=== PATIENT | female | born 1960 | race Caucasian/White ===

== ENCOUNTER 2022-12-02 20:30 | Emergency (ER) | payer BC, SELFPAY ==
[2022-12-02 20:30] VITALS: BP 111/67; PULSE 162; RESP 16; TEMP 36.7; O2SAT 98; BMI 50.1
[2022-12-02] MEDS: dilTIAZem 5 MG/ML inj 20 MG IVP (20:45)
--- NOTE | 2022-12-02 20:51 | ED.GENADULT ---
HPI - General Adult General Chief complaint: Chest Pain Stated complaint: chest pain Time Seen by Provider: 12/02/22 20:46 History of Present Illness HPI narrative: This 62-year-old female comes in reporting when lightheadedness and shortness of breath with exertion. She has a history of atrial fibrillation with rapid ventricular response. She states that she has had medications, cardioversions and ablations done in the past. She states that symptoms started this morning. She does have chest pain but states that it is a brief sharp pain lasting just for a few seconds. She is on Eliquis, atorvastatin, Protonix, and sotalol. Related Data Home Medications Medication Instructions Recorded Confirmed apixaban 5 mg tablet (Eliquis) 5 mg PO BID 10/30/22 12/02/22 atorvastatin 20 mg tablet 20 mg PO DAILY 10/30/22 12/02/22 pantoprazole 40 mg tablet,delayed 40 mg PO DAILY 10/30/22 12/02/22 release sotalol 80 mg tablet 80 mg PO BID 10/30/22 12/02/22 spironolactone 25 mg tablet 12.5 mg PO DAILY 12/02/22 12/02/22 Allergies Allergy/AdvReac Type Severity Reaction Status Date / Time Latex, Natural Rubber Allergy Unknown Verified 12/02/22 21:15 Review of Systems Status of ROS: Reports: 10 or more systems reviewed and unremarkable except as noted in History and below Narrative: Constitutional: No fevers, no weight gain or loss. Eyes: No discharge. No vision changes. HENT: No congestion, no sore throat, no ear pain. Cardiovascular: Brief sharp chest pain episodes lasting a few seconds. Respiratory: No wheezes, no cough. Shortness of breath with exertion. Gastrointestinal: No abdominal pain, no vomiting, no diarrhea. Genitourinary: No dysuria, no hematuria. Musculoskeletal: Normal range of motion. Skin: No rashes, no pruritis. Neurological: No weakness, sensory change, speech change. Lightheadedness with exertion. Endo/Heme/Allergies: No bruising or bleeding. No polydipsia. Pysch: no suicidality, no anxiety, no insomnia. All other systems reviewed and are negative. PFSH PFS Social History Smoking Status: Never smoker How often do you have a drink containing alcohol: never AUDIT-C Alcohol total score: 0 Non-prescribed substance use: denies use Exam Narrative: Exam Narrative: Constitutional: Well-developed, well-nourished, no acute distress. HEENT: Normocephalic, atraumatic. Neck: Normal range of motion. Nontender. Supple. Heart: Regular. No murmurs. Tachycardia. Intact distal pulses. Lungs: Clear to auscultation. No chest discomfort. No wheezes, rhonchi, or rales. Abdomen: Normal bowel sounds. Nontender. No rebound tenderness. Genitalia: Deferred. Back: No midline tenderness. Normal range of motion. Extremities: Normal range of motion. No injury. Skin: Intact. No rash. Warm. No erythema or pallor. Neurologic: No altered sensation. No weakness. Alert and oriented. Psychiatric: No suicidality. No anxiety or depression. No insomnia. Nursing notes and vitals signs are reviewed. Const: Vital Signs, click to edit/add: Vital Signs - 24 hr 12/02/22 20:30 Temperature 98.0 F Pulse Rate [Right Pulse Oximeter] 162 H Respiratory Rate 16 Blood Pressure [Ri ght Upper Arm] 111/67 Pulse Oximetry 98 Oxygen Delivery Me thod Room Air Course Vital Signs Vital signs: Initial Vital Signs Temperature 98.0 F 12/02/22 20:30 Temperature Source Temporal Artery Scan 12/02/22 20:30 Pulse Rate 162 H 12/02/22 20:30 Pulse Rhythm Irregular 12/02/22 20:30 Pulse Strength 3+ Normal 12/02/22 20:30 Respiratory Rate 16 12/02/22 20:30 Blood Pressure 111/67 12/02/22 20:30 Blood Pressure Mean 81 12/02/22 20:30 Blood Pressure Position Sitting 12/02/22 20:30 Pulse Oximetry 98 12/02/22 20:30 Oxygen Delivery Method Room Air 12/02/22 20:30 Vital Signs Temperature 98.0 F 12/02/22 20:30 Pulse Rate 162 H 12/02/22 20:30 Respiratory Rate 16 12/02/22 20:30 Blood Pressure 111/67 12/02/22 20:30 Pulse Oximetry 98 12/02/22 20:30 Oxygen Delivery Method Room Air 12/02/22 20:30 Temperature 98.0 F 12/02/22 20:30 Pulse Rate 162 H 12/02/22 20:30 Respiratory Rate 16 12/02/22 20:30 Blood Pressure 111/67 12/02/22 20:30 Pulse Oximetry 98 12/02/22 20:30 Oxygen Delivery Method Room Air 12/02/22 20:30 Medical Decision Making MDM Narrative Medical decision making narrative: This patient arrives in tachycardia and likely an atrial fibrillation rhythm. Her heart rate was at 160 5 beats per minute. She was not reporting any significant chest pain but did have real brief short-lived sharp pains lasting a 2nd or 2. She did not have any nausea or vomiting. She states that she has had symptoms like this in the past but they did not persist as long. She is on Eliquis. An IV was established and labs are acquired. The patient did received 20 mg of diltiazem and this caused her to convert back to normal sinus rhythm and rate. Repeat EKG shows sinus rhythm with a rate of 84 beats per minute. Lab results returned with normal findings also. In particular her troponin is in normal range and her magnesium also is normal. The patient is okay to be discharged to resume current plans. She does have ongoing relationship with a security intelligence analyst that she can follow-up with. Lab Data Labs: Lab Results 12/02/22 Range/Units 20:55 WBC 11.35 H (4.50-11.00) K/uL RBC 5.06 (4.00-5.20) m/uL Hgb 14.5 (12.0-16.0) gm/dL Hct 46.1 (33.0-51.0) % MCV 91 (80-100) fL MCH 29 (26-34) pg MCHC 32 (32-36) gm/dL RDW Coeff of Odell 14.0 (11.5-15.5) % Plt Count 337 (140-440) K/uL Neut % (Auto) 68.8 (42.0-72.0) % Lymph % (Auto) 21.1 (20-44) % Tift % (Auto) 7.5 (0.0-11.0) % Eos % (Auto) 1.7 (0.0-7.0) % Baso % (Auto) 0.8 (0.0-3.0) % Neut # (Auto) 7.80 H (1.7-7.0) K/uL Lymph # (Auto) 2.40 (0.90-2.90) K/uL Tift # (Auto) 0.90 (0.00-0.90) K/UL Eos # (Auto) 0.20 (0.00-0.50) K/uL Baso # (Auto) 0.10 (0.00-0.30) K/uL Diff Slide Review Acceptable Review (Acceptable) Sodium 136 (135-149) mmol/L Potassium 4.6 (3.6-5.1) mmol/L Chloride 105 (96-114) mmol/L Carbon Dioxide 24 (20-32) mmol/L BUN 14 (7-30) mg/dL Creatinine 1.0 (0.5-1.5) mg/dL Estimated Creat Clear 56.72 Estimated GFR 64 ml/min Glucose 119 H (60-115) mg/dL Calcium 9.5 (8.4-10.6) mg/dL Magnesium 2.2 (1.5-2.6) mg/dL POC Troponin I 0.01 (0.01-0.04) ng/ml ECG Data Attestation: I personally reviewed and interpreted this ECG as follows: Interpretation: Tachycardia, rate 163 beats per minute. Left bundle branch block. Repeat EKG after 20 mg of diltiazem intravenously shows normal sinus rhythm with a rate of 84 beats per minute. There are no specific ST or T-wave abnormalities. Discharge Plan Discharge Clinical Impression: Atrial fibrillation with rapid ventricular response Patient Disposition: Home, Self-Care Condition: Improved Additional Instructions: Continue current plans. Follow up with cardiology clinic to review medications and plans. Return if symptoms are recurrent or worsening. Prescriptions: No Action spironolactone 25 mg tablet 12.5 mg PO DAILY atorvastatin 20 mg tablet 20 mg PO DAILY sotalol 80 mg tablet 80 mg PO BID pantoprazole 40 mg tablet,delayed release (DR/EC) 40 mg PO DAILY Eliquis 5 mg tablet 5 mg PO BID Follow Up/Referrals: Kia Zamora DO [Primary Care Provider] - Stand Alone Forms: [employer] Info Instructions
[2022-12-02 21:00] LABS: Basophils Percent Auto 0.8 % (0.0-3.0); Eosinophils Percent Auto 1.7 % (0.0-7.0); Hematocrit 46.1 % (33.0-51.0); Hemoglobin* 14.5 gm/dL (12.0-16.0); Immature Granulocytes Pct Auto 0.1 %; Lymphocytes Percent Auto 21.1 % (20-44); Mean Corpuscular HGB Conc 32 gm/dL (32-36); Mean Corpuscular Hemoglobin 29 pg (26-34); Mean Corpuscular Volume 91 fL (80-100); Monocytes Percent Auto 7.5 % (0.0-11.0); Neutrophils Percent Auto 68.8 % (42.0-72.0); Platelet Count* 337 K/uL (140-440); Red Blood Count 5.06 m/uL (4.00-5.20); White Blood Count* 11.35 K/uL (4.50-11.00)
[2022-12-02 21:04] LABS: Slide Review Reflex Yes
[2022-12-02 21:12] LABS: Troponin, Point-of-Care* 0.01 ng/ml (0.01-0.04)
[2022-12-02 21:13] LABS: Chloride* 105 mmol/L (96-114); Potassium* 4.6 mmol/L (3.6-5.1); Sodium* 136 mmol/L (135-149)
[2022-12-02 21:16] LABS: Blood Urea Nitrogen* 14 mg/dL (7-30); Calcium* 9.5 mg/dL (8.4-10.6); Carbon Dioxide* 24 mmol/L (20-32); Est. Creatinine Clearance* 56.72; Estimated Glomerular Filt Rate 64 ml/min; Glucose* 119 mg/dL (60-115)
[2022-12-02 21:17] LABS: Magnesium* 2.2 mg/dL (1.5-2.6)
[2022-12-02 21:38] LABS: Slide Review Acceptable Review (Acceptable)
== END 2022-12-02 22:07 | disposition home or self-care (01) ==
PROVIDERS: Emergency Provider Emergency Medicine Emergency Medical Services; PCP Family Medicine
DX: I48.20 Chronic atrial fibrillation, unspecified (principal)
CPT/HCPCS: 36415; 80048; 83735; 84484; 85025; 93005; 99284

== ENCOUNTER 2022-12-05 20:11 | Emergency (ER) | payer BC, SELFPAY ==
[2022-12-05] VITALS (16 sets, daily range): BP systolic 97–154; BP diastolic 48–102; PULSE 83–165; RESP 16; TEMP 36.6; O2SAT 94–98; BMI 50.1
[2022-12-05] MEDS: dilTIAZem 5 MG/ML inj 20 MG IVP (20:30)
[2022-12-05] MEDS: 0.9 % SODIUM CHLORIDE 1000 ml 1,000 ML IV (20:30)
--- NOTE | 2022-12-05 20:56 | ED_ITS ---
HPI - General Adult General Chief complaint: Arrhythmia/Palpitations Stated complaint: feels like heart is racing Time Seen by Provider: 12/05/22 20:17 Source: patient Mode of arrival: ambulatory Limitations: no limitations History of Present Illness HPI narrative: 62-year-old female coming in today complaining about increased fatigue which she attributes to any regular heartbeat. Patient states this happened to her many times in the past. She states that she knows that her heart is beating irregularly because her stamina decreases. She states that she noticed this decreased this morning. She is unable to take her pulse so can not tell how fast her pulse is going. She denies chest pain, shortness of breath, nausea, vomiting, diaphoresis or dizziness. Last time this occurred was 3 days ago. Related Data Home Medications Medication Instructions Recorded Confirmed apixaban 5 mg tablet (Eliquis) 5 mg PO BID 10/30/22 12/02/22 atorvastatin 20 mg tablet 20 mg PO DAILY 10/30/22 12/02/22 pantoprazole 40 mg tablet,delayed 40 mg PO DAILY 10/30/22 12/02/22 release sotalol 80 mg tablet 80 mg PO BID 10/30/22 12/02/22 spironolactone 25 mg tablet 12.5 mg PO DAILY 12/02/22 12/02/22 Allergies Allergy/AdvReac Type Severity Reaction Status Date / Time Latex, Natural Rubber Allergy Unknown Verified 12/02/22 21:15 Review of Systems Status of ROS: Reports: 10 or more systems reviewed and unremarkable except as noted in History and below [facility] Social History Smoking Status: Never smoker Second hand tobacco smoke exposure: No How often do you have a drink containing alcohol: never How often do you have six or more drinks on one occasion: Never AUDIT-C Alcohol total score: 0 Non-prescribed substance use: denies use Exam Narrative: Exam Narrative: Well-nourished well-developed patient in no acute distress. Alert and oriented x3. Answers questions appropriately. Mood and affect are appropriate. Thoughts are goal oriented and rational. No tangential or magical thinking noted. Patient speaks in full sentences without needing to catch her breath. HEENT: Normocephalic atraumatic. Pupils are equally round reactive to light. Extraocular muscles are intact. Conjunctivae are moist without any icterus noted. Moist mucous membranes. Posterior pharynx is normal. Neck is soft without any lymphadenopathy or thyromegaly. No masses are appreciated. Cardiovascular: Heart is regular rate and rhythm S1 and S2 are present without any murmurs. Lungs: Clear to auscultation bilaterally no wheezes rhonchi or rales are appreciated. Patient takes deep breaths without any discomfort. Abdomen: Soft and nontender nondistended with normal bowel sounds. No guarding or rebound. No masses or organomegaly appreciated. Extremities: Bilateral lower extremities are without edema. Normal DP and PT pulses. Skin: Well perfused without any obvious rashes. Const: Vital Signs, click to edit/add: Vital Signs - 24 hr 12/05/22 20:17 12/05/22 20:29 12/05/22 20:30 Temperature 97.9 F Pulse Rate 165 H Pulse Rate [Left P ulse Oximeter] 108 H Respiratory Rate 16 16 Blood Pressure 125/76 Blood Pressure [Ri ght Upper Arm] 154/102 H Pulse Oximetry 96 96 98 Oxygen Delivery Me thod Room Air 12/05/22 21:21 12/05/22 21:32 12/05/22 21:42 Temperature Pulse Rate 84 86 86 Pulse Rate [Left P ulse Oximeter] Respiratory Rate 16 16 16 Blood Pressure 105/92 H 97/64 113/48 L Blood Pressure [Ri ght Upper Arm] Pulse Oximetry 97 97 96 Oxygen Delivery Me thod 12/05/22 21:51 12/05/22 22:02 Temperature Pulse Rate 85 85 Pulse Rate [Left P ulse Oximeter] Respiratory Rate 16 16 Blood Pressure 125/66 105/53 L Blood Pressure [Ri ght Upper Arm] Pulse Oximetry 95 95 Oxygen Delivery Me thod Course Course Hospital Course: EKG was done, read by me, shows a wide QRS tachycardia with a pulse of 165. IV established and patient received normal saline and 20 mg of IV Cardizem, she promptly cardioverted back to normal sinus rhythm with a pulse in the 80s. I consulted Cardiology at [facility], Dr. Calixto, who recommended that the patient be transferred for further management given her complex history of recurrent arrhythmias. Dr. Calixto commented that today's EKG looked like a potential atypical flutter. Of note, patient is currently hemodynamically stable and will be waiting transfer. TSH and magnesium were drawn-both unremarkable today. Other labs were not drawn as patient had unremarkable lab work 3 days ago. Vital Signs Vital signs: Initial Vital Signs Temperature 97.9 F 12/05/22 20:17 Temperature Source Temporal Artery Scan 12/05/22 20:17 Pulse Rate 108 H 12/05/22 20:17 Respiratory Rate 16 12/05/22 20:17 Blood Pressure 154/102 H 12/05/22 20:17 Blood Pressure Mean 119 H 12/05/22 20:17 Pulse Oximetry 96 12/05/22 20:17 Oxygen Delivery Method Room Air 12/05/22 20:17 Vital Signs Temperature 97.9 F 12/05/22 20:17 Pulse Rate 108 H 12/05/22 20:17 Respiratory Rate 16 12/05/22 20:17 Blood Pressure 154/102 H 12/05/22 20:17 Pulse Oximetry 96 12/05/22 20:17 Oxygen Delivery Method Room Air 12/05/22 20:17 Temperature 97.9 F 12/05/22 20:17 Pulse Rate 85 12/05/22 22:02 Respiratory Rate 16 12/05/22 22:02 Blood Pressure 105/53 L 12/05/22 22:02 Pulse Oximetry 95 12/05/22 22:02 Oxygen Delivery Method Room Air 12/05/22 20:17 Medical Decision Making MDM Narrative Medical decision making narrative: 62-year-old female with recurrent arrhythmia. Patient will be transferred to [facility] per above. Medical Records Medical records reviewed: Yes I reviewed the patient's medical records Lab Data Lab results reviewed: Yes I reviewed the patient's lab results Labs: Lab Results 12/05/22 Range/Units 20:21 Magnesium 2.1 (1.5-2.6) mg/dL TSH 2.110 (0.270-4.20) uIU/mL ECG Data Attestation: I personally reviewed and interpreted this ECG as follows: Discharge Plan Discharge Clinical Impression: Atrial flutter Patient Disposition: [facility] Condition: Improved Prescriptions: No Action spironolactone 25 mg tablet 12.5 mg PO DAILY atorvastatin 20 mg tablet 20 mg PO DAILY sotalol 80 mg tablet 80 mg PO BID pantoprazole 40 mg tablet,delayed release (DR/EC) 40 mg PO DAILY Eliquis 5 mg tablet 5 mg PO BID Follow Up/Referrals: Kia Zamora DO [Primary Care Provider] - Stand Alone Forms: [employer] Info Instructions
[2022-12-05 21:52] LABS: Magnesium* 2.1 mg/dL (1.5-2.6)
[2022-12-06 01:27] VITALS: BP 124/74; PULSE 78; RESP 16; TEMP 36.6; O2SAT 95
[2022-12-06 01:30] VITALS: BP 124/74; PULSE 78; RESP 16; TEMP 36.6
== END 2022-12-06 01:31 | disposition short-term general hospital (02) ==
PROVIDERS: Emergency Provider Family Medicine; PCP Family Medicine
DX: I48.92 Unspecified atrial flutter (principal)
CPT/HCPCS: 36415; 83735; 84443; 93005; 94761; 99284; 99285; J7030

== ENCOUNTER 2022-12-06 00:36 | Outpatient (CLI) | payer BC, SELFPAY | END 2022-12-06 00:37 | disposition home or self-care (01) | LOC: AMB 07:50 | PROVIDERS: PCP Family Medicine; Visit Provider Family Medicine | DX: I49.9 Cardiac arrhythmia, unspecified (principal); R53.1 Weakness; R06.02 Shortness of breath; R53.83 Other fatigue | CPT/HCPCS: A0425; A0427; A0428 ==

== ENCOUNTER 2025-02-14 07:45 | Emergency (ER) | payer BC, SELFPAY ==
[2025-02-14] VITALS (20 sets, daily range): BP systolic 86–144; BP diastolic 30–109; PULSE 98–197; RESP 13–21; O2SAT 92–96
--- OUTSIDE RECORDS SUMMARY | 2025-02-14 07:50 | XMS_ITS | Clinical Summary ---
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 0 0 Active cholecalciferol, Vitamin D3, 5,000 unit tab tablet Take 5,000 Units by mouth once daily. Active Blood Pressure Monitor (BLOOD PRESSURE KIT)Indications: Essential hypertension Diagnosis: hypertension Arm cuff. Use as directed 1 Device 0 Active lotmuat-plgg-gdg zb-kewv-oscbcg 100 mg-150 mg- 50 mg-150 mg cap Take by mouth. 0 1 Active CPAPIndications: GERARDO (obstructive sleep apnea) CPAP machine for home use at pressure 9cmw with epr of 2; starting pressure should be between 5-7 per patient preference for comfort, full face mask x1/3month with a full face cushion x1/mo 1 Each 11 4 Active apixaban (Eliquis) 5 mg tabletIndication s:Persistent atrial fibrillation (HC) Take 1 Tablet (5 mg) by mouth two times daily. 180 Tablet 1 4 Active Additional Information Patient not taking.Reported on 11/23/2024 atorvastatin (LIPITOR) 20 mg tabletIndication s:Elevated coronary artery calcium score Take 1 Tablet (20 mg) by mouth at bedtime. 100 Tablet 3 5 Active magnesium 250 mg tab Take 1 Tablet (250 mg) by mouth once daily. 5 Active flecainide 100 mg tabletIndication s:Paroxysmal atrial fibrillation (HC) Take 1 Tablet (100 mg) by mouth every 12 hours. 180 Tablet 3 5 Active spironolactone 25 mg tabletIndication s:CHAN (dyspnea on exertion),Fluid retention Take 0.5 Tablets (12.5 mg) by mouth once daily. 45 Tablet 3 5 Active lisinopriL 10 mg tabletIndication s:Essential hypertension Take 1 Tablet (10 mg) by mouth two times daily. 180 Tablet 3 5 Active metoprolol tartrate 50 mg tabletIndication s:Paroxysmal atrial fibrillation (HC) TAKE ONE TABLET BY MOUTH TWICE A DAY 180 Tablet 3 5 Active oxyCODONE 5 mg immediate release tabletIndication s:Closed fracture of one rib of right side, initial encounter Take 1 Tablet (5 mg) by mouth every 6 hours if needed for Pain. 10 Tablet 5 Active Active Problems Problem Noted Date Diagnosed Date Morbid obesity, unspecified obesity type 025 Primary osteoarthritis of right knee 03/18/2022 Chronic systolic congestive heart failure 2021 Chest pain 01/24/2020 Pericarditis 01/18/2020 CKD (chronic kidney disease), stage III 07/24/19 20 Prediabetes 12/31/2018 Essential hypertension 12/30/2018 Dyslipidemia 12/30/2018 Dilated cardiomyopathy (HC) tachy mediated histo ry of 08/03/2018 Paroxysmal atrial fibrillation 02/01/2016 Overview (09/22/2021): CHADVASC score 1 - aspirin recommended Normal echocardiogram in 2016. Normal Lexiscan nuclear perfusion scan in 2016. SCOTT (generalized anxiety disorder) 06/22/2014 Morbid obesity with BMI of 50.0-59.9, adult 08/30 GERARDO 02/25/2012 AHI- 13, REM 31 02/29/2012 Depression, major, in remission 02/18/2012 Overview (06/22/2014): Celexa Klonopin Abilify 2mg -- trying other meds first Wellbutrin 150mg did not tolerate Effexor low dose jolts of anxiety Insomnia, unspecified 02/09/2012 Atypical chest pain 08/07/2010 Overview (08/07/2010): [facility] ER visit 0n 07/23/2010. STRESS ECHO: 1. Negative for myocardial ischemia. 2.EF 65% 3. Left Ventricular End systolic volume decreased with stress Resolved Problems Problem Noted Date Diagnosed Date Resolved Date Elevated troponin 01/24/2020 06/16/2021 Hypothyroidism 10/31/2015 10/31/2015 Prediabetes 09/18/2015 09/23/2017 Dysthymia 09/14/2012 10/02/2014 Insomnia, unspecified 09/14/20122019 Adjustment disorder with anxiety 08/18/2012 05/02/2014 Insomnia, unspecified 02/09/20122011 Adjustment disorder with mix ed anxiety and depressed mood 10/10/2009 08/18/2012 CELLULITIS of L labia majora 07/28/2006 06/16/2021 EXAMINATION, PREOPERATIVE NEC 04/07/2000 01/21/2006 Excessive or frequent menstruation 04/07/2000 06/16/2021 Lump or mass in breast 12/22/199906/16 Cough 01/21/2006 Encounters Date Type Department Care Team Description 01/30/2025 Patient Outreach [facility] Care Management - Advanced Care Team [address] [place] [address] Sravanthi Kim Complex Care Management 11/23/2024 11:00 AM CDT Ancillary Procedure [facility] [address] [place] [address] 11/23/2024 10:50 AM CDT Office Visit [facility] [address] [place] [address] Bialey Goodman PA Fall (11/11-- fall) 11/23/2024 Telephone [facility] [address] [place] [address] Bailey Goodman PA Results (Rib XR results. ) 11/23/2024 Travel 11/21/2024 Nurse Triage [facility] [address] [place] [address] Kia Zamora, Chest Pain from Last 3 Months Immunizations Immunization Administration Dates Next Due COVID-19 VACCINE SPIKEVAX (M ODERNA 50MCG/0.5ML) 12YO+ PFS 03/28/2024,04/12/2023 COVID-19 vaccine (Moderna 50mcg/0.5mL) 12YO+ BIVALENT PF, MDV 03/18/2022 COVID-19 vaccine (Pfizer-Bio NTech 30mcg/0.3mL) PF, MDV 04/26/2021,09/30/2020,09/11/2020 INFLUENZA, IIV3 PF (AGE >= 6 MO) 03/28/2024 Influenza Virus, Unspecified 03/26/2017 Influenza, IIV3 (Age >=3 years) 06/02/2012 Influenza, IIV4 03/02/2023,,05/19/2021,2019,07/19/2019,02/24/2018 Pneumococcal Conj 20-valent (Prevnar 20) 01/26/2024 Tdap 09/22/2021,06/02/2012 Zoster (Shingrix-RZV, recombinant) 07/12/2020, Family History Medical History Relation Name Comments Unknown Father Unknown Mother Genetic Other sister breast c a diag at 41 years old. Dad dm now .~No hx of CAD or HTN or colon cancer. Cancer-breast Sister Cancer-ovarian No Family History Relation Name Status Comments Father Mother Other Sister Social History Tobacco Use Types Packs/Day Years Used Date Smoking Tobacco: Never Passive Smoke Exposure: Never Smokeless Tobacco: Never Tobacco Cessation:Counseling Given: Not Answered Alcohol Use Standard Drinks/Week Comments No 0 (1 standard drink = 0.6 oz pur e alcohol) PHQ-2 Answer Date Recorded PHQ-2 TOTAL SCORE 1 01/26/2024 Social Connections Answer Date Recorded Do you often feel lonely or isolated from those around you? 0 08/23/2024 Financial Resource Strain Answer Date R ecorded Difficulty of Paying Living Expenses 1 07/17/2024 Difficulty of Paying Living Expenses 2 07/17/2024 Food Insecurity Answer Date Recorded Do you worry your food will run out before you are able to buy more? 2 08/23/2024 Transportation Needs Answer Date Record ed Does lack of transportation keep you from medica l appointments? 1 08/23/2024 Does lack of transportation keep you from work, meetings or getting things that you need? 1 08/23/2024 Housing Stability Answer Date Recorded What is your housing situation today? 1 08/23/2024 Utilities Answer Date Recorded Do you have trouble paying f or utilities (for example, heat, electricity, water, phone)? 1 08/23/2024 Comments No Sex and Gender Information Value Date Recorded Sex Assigned at Not on file Legal Sex Female 5:25 AM PRESS TENDER SMOKE SIGNAL Gender Identity Not on file Sexual Orientation Not on file Obstetrics History Para Term AB IAB SAB Ectopic Multiple Livin g Live Births 2 2 Date Outcome GA Total Labor Labor/2nd/3rd Weight Sex Type Anes PTL Valente A1 A5 Name Clin Last Filed Vital Signs Vital Sign Reading Time Taken Comments Blood Pressure 114/79 11/23/2024 10:52 AM CDT Pulse 65 11/23/2024 10:52 AM CDT Temperature 36.2 C (97.2 F) 03/30/2023 10:00 AM CDT Respiratory Rate 18 03/30/2023 10:0 0 AM CDT Oxygen Saturation 96% 11/23/2024 10: 43 AM CDT Inhaled Oxygen Concentration - - Weight 151.9 kg (334 lb 12.8 oz) 2024 10:43 AM CDT Height 170.2 cm (5' 7.01) 09/13/2024 1 0:32 AM CDT Body Mass Index 52.42 09/13/2024 10:32 AM CDT Plan of Treatment Health Maintenance Due Date Last Done Comments HIV for age 15-65 1975 Pap test for age 21-65 07/23/2008 07/23/2005 RSV vaccine for adults or (1 - Risk 60-74 years 1-dose series) 2020 Depression screening for age 12+ 01/25/2025 01/26/2024, 03/18/2022, 03/18/2022, Additional history exists Influenza Vaccine (#1) 2025 , 03/02/2023, 03/18/2022, Additional history exists Mammogram for age 45-75 08/01/2025 08/02/19 25, 05/13/2023, 05/13/2022, Additional history exists BMI (ht and wt on same day) for age 18+ 09/13/2025 09/13/2024, 01/26/2024, 09/13/2023, Additional history exists Fecal testing sDNA-FIT (Cologuard) for age 45-75 08/15/2027 08/14/2024 Lipids for age 45-75 01/25/2029 01/26/2024, 10/07/2022, 10/06/2021, Additional history exists Tetanus booster 09/23/2031 09/22/2021, 06/02/2012 Hepatitis C screening for age 18-79 Completed 12/30/2018 Zoster (shingles) series for age 50+ Completed 07/12/2020, 05/09/2020 Pneumococcal series for age 50+ Completed 01/26/2024 COVID-19 vaccine series Completed 03/28/20 24, 04/12/2023, 03/18/2022, Additional history exists Hepatitis B series for 19+ Aged Out N o longer eligible based on patient's age to complete this topic Procedures Procedure Name Priority Date/Time Associated Diagnosis Comments XR RIBS RIGHT AND PA CHEST MINIMUM 3 VIEWS Routine 11/23/2024 11:07 AM CDT Rib pain on right side SDNA-FIT EXTERNAL (COLOGUARD) Routine 08/14/2024 10:10 AM CDT Screening for colon cancer XR MAMMO ADRIANA BILAT SCREEN Routine 08/01/2024 10:58 AM PRESS TENDER SMOKE SIGNAL Visit for screening mammogram LIPID PANEL W REFLEX MEASURED LDL Routine 01/26/2024 12:17 PM CDT Dyslipidemia ANTI HCV Routine 12/30/2018 1:34 PM CDT Encounter for hepatitis C screening test for low risk patient ([place]) WEB MARKETING ASSISTANT THIN PREP PAP SCREEN Routine 07/23/2005 5:42 PM PRESS TENDER SMOKE SIGNAL Screening Malignant Neoplasms Cervix from Last 3 Months or Most Recently Relevant to Health Maintenance Results * XR RIBS RIGHT AND PA CHEST MINIMUM 3 VIEWS (11/23/2024 11:07 AM CDT) Anatomical Region Laterality Modality RIBS, RIBS R, CHEST Computed Rad iography 11/23/2024 1:43 PM CDT Impressions 11/23/2024 1:43 PM CDT Possible nondisplaced right lateral 8th rib fracture. Bibasilar atelectasis. Dictated by Manny Brown MD @ 11/23/2024 1:43:28 PM (Electronically Signed) Narrative 11/23/2024 1:43 PM CDT For Patients: As a result of the Cures Act, medical imaging exams and procedure reports are released immediately into your electronic medical record. You may view this report before your referring provider. If you have questions, please contact your health care provider. INDICATION: Right rib pain COMPARISON: 12/06/2022 TECHNIQUE: PA chest and right ribs. FINDINGS: Mild right basilar atelectasis. There is no evidence of pulmonary contusion, pneumothorax or pleural effusion. Cardiac silhouette is upper limits normal. Aortic tortuosity. Oblique detail views of the ribs demonstrate a possible nondisplaced fracture of the right lateral 8th rib. There is no evidence of pleural hematoma. Procedure Note Manny Brown MD - 11/23/2024 For Patients: As a result of the Cures Act, medical imagingexams and procedure reports are released immediately into your electronicmedical record. You may view this report before your referring provider.If you have questions, please contact your health care provider. INDICATION: Right rib pain COMPARISON: 12/06/2022 TECHNIQUE: PA chest and right ribs. FINDINGS: Mild right basilar atelectasis. There is no evidence of pulmonarycontusion, pneumothorax or pleural effusion. Cardiac silhouette is upperlimits normal. Aortic tortuosity. Oblique detail views of the ribsdemonstrate a possible nondisplaced fracture of the right lateral 8th rib.There is no evidence of pleural hematoma. IMPRESSION: Possible nondisplaced right lateral 8th rib fracture. Bibasilaratelectasis. Dictated by Manny Brown MD @ 11/23/2024 1:43:28 PM (Electronically Signed) [facility] Final Result * SDNA-FIT EXTERNAL (COLOGUARD) (08/14/2024 10:10 AM CDT) NONINV COLON CA DNA+OCC BLD SCRN STL-IMP Negative Negative 08/17/2024 12:38 PM CDT [facility] (CLIA #:[id number]) Comment: NEGATIVE TEST RESULT. A negative Cologuard result indicates a low likelihood that a colorectal cancer (CRC) or advanced adenoma (adenomatous polyps with more advanced pre-malignant features) is present. The chance that a person with a negative Cologuard test has a colorectal cancer is less than 1 in 1500 (negative predictive value >99.9%) or has an advanced adenoma is less than 5.3% (negative predictive value 94.7%). These data are based on a prospective cross-sectional study of 10,000 individuals at average risk for colorectal cancer who were screened with both Cologuard and colonoscopy. (Elizabet Saavedra et al, N Engl J Med 2014;370(14):5598-8477) The normal value (reference range) for this assay is negative. COLOGUARD RE-SCREENING RECOMMENDATION: Periodic colorectal cancer screening is an important part of preventive healthcare for asymptomatic individuals at average risk for colorectal cancer. Following a negative Cologuard result, the [place] Cancer Society and U.S. Multi-Society Task Force screening guidelines recommend a Cologuard re-screening interval of 3 years. References: [place] [employer] Society Guideline for Colorectal Cancer Screening: https://www.cancer.org/cancer/jmdoi-zyvavl-orfgji/avzmmlizw-ahvphvfof-uxggwql/ac s-rec ommendations.html.; Leonides DK, Ami CR, Toya PandyaK, Colorectal Cancer Screening: Recommendations for Physicians and Patients from the U.S. Multi-Society Task Force on Colorectal Cancer Screening , Am J Gastroenterology 2017; 112:7934-6773. TEST DESCRIPTION: Composite algorithmic analysis of stool DNA-biomarkers with hemoglobin immunoassay. Quantitative values of individual biomarkers are not reportable and are not associated with individual biomarker result reference ranges. Cologuard is intended for colorectal cancer screening of adults of either sex, 45 years or older, who are at average-risk for colorectal cancer (CRC). Cologuard has been approved for use by the U.S. FDA. The performance of Cologuard was established in a cross sectional study of average-risk adults aged 50-84. Cologuard performance in patients ages 45 to 49 years was estimated by sub-group analysis of near-age groups. Colonoscopies performed for a positive result may find as the most clinically significant lesion: colorectal cancer [4.0%], advanced adenoma (including sessile serrated polyps greater than or equal to 1cm diameter) [20%] or non- advanced adenoma [31%]; or no colorectal neoplasia [45%]. These estimates are derived from a prospective cross-sectional screening study of 10,000 individuals at average risk for colorectal cancer who were screened with both Cologuard and colonoscopy. (Elizabet Santana al, N Engl J Med 2014;370(14):3395-1786.) Cologuard may produce a false negative or false positive result (no colorectal cancer or precancerous polyp present at colonoscopy follow up). A negative Cologuard test result does not guarantee the absence of CRC or advanced adenoma (pre-cancer). The current Cologuard screening interval is every 3 years. ([place] Cancer Society and U.S. Multi-Society Task Force). Cologuard performance data in a 10,000 patient pivotal study using colonoscopy as the reference method can be accessed at the following location: www.[employer].FanMob/results. Additional description of the Cologuard test process, warnings and precautions can be found at www.Quellanrd.com. Stool specimen (specimen) (Rectum) 08/14/2024 10:10 AM CDT 08/15/2024 7:19 AM CDT Kia To Sera DO URINE Final Resul t [facility] (CLIA #:[id number]) [address] [place] [address], [place] [phone] * XR MAMMO ADRIANA BILAT SCREEN (08/01/2024 10:58 AM PRESS TENDER SMOKE SIGNAL) Anatomical Region Laterality Modality BREASTS, Breast Left, Breast Right Bilateral Mammography Impressions 08/01/2024 3:31 PM PRESS TENDER SMOKE SIGNAL There is no radiographic evidence for malignancy. Recommend annual mammograms. MAMMOGRAM ASSESSMENT: ACR 1 Negative PATIENTS: You will also receive a letter with your examination results in an easy to read format. If you have questions about your results, please contact your referring provider. Narrative 08/01/2024 3:31 PM PRESS TENDER SMOKE SIGNAL For Patients: As a result of the Century Cures Act, medical imaging exams and procedure reports are released immediately into your electronic medical record. You may view this report before your referring provider. If you have questions, please contact your health care provider. XR MAMMO ADRIANA BILAT SCREEN [[id number]] CLINICAL HISTORY: This is an asymptomatic 64 y.o. patient. INDICATION FOR EXAM: Mammogram Screening. TECHNIQUE: CC and MLO views were obtained. This study was evaluated with the assistance of Computer-Aided Detection. Breast Tomosynthesis was used in interpretation. COMPARISON FILM: Yes 05/13/23 [facility] 05/13/22 [employer] FINDINGS: There are scattered areas of fibroglandular density. There are no dominant masses, suspicious micro calcifications or areas of architectural distortion. Kia Zuleika Sera DO MAMMO Final Resul t * LIPID PANEL W REFLEX MEASURED LDL (01/26/2024 12:17 PM CDT) CHOLESTEROL,TOTAL 141 100 - 199 mg/dL 01/26/2024 7:26 PM CDT [facility] Comment: Cholesterol, Total Reference Ranges Desirable <200 mg/dL Borderline 200-239 mg/dL High >=240 mg/dL TRIGLYCERIDES 129 <150 mg/dL 01/26/2024 7:26 PM CDT [facility] HDL CHOLESTEROL 57 >40 mg/dL 7:26 PM CDT [facility] NON-HDL CHOLESTEROL 84 <145 mg/dl 01/26/2024 7:26 PM CDT [facility] CHOL/HDL RATIO 2.47 <4.50 01/26/2024 7:26 PM CDT [facility] LDL CHOLESTEROL 58 <=130 mg/dL 01/26/2024 7:26 PM CDT [facility] VLDL CHOLESTEROL 26 <=30 mg/dL 01/26/2024 7:26 PM CDT [facility] PROVIDER ORDERED STATUS RANDOM 01/26/2024 7:26 PM CDT [facility] Blood BLOOD SPECIMEN / Unknown Venipuncture / Unknown 01/26/2024 12:17 PM CDT 01/26/2024 12:18 PM CDT Kia Zamora DO CHEMISTRY Final Resul t [facility] [address] [place] [address], * ANTI HCV (12/30/2018 1:34 PM CDT) HEPATITIS C ANTIBODY Non-React anatoliy Non-React anatoliy 12/30/2018 8:22 PM CDT [facility] Comment:Antibodies to HCV no t detected; does not exclude the possibility of exposure to HCV. Blood BLOOD SPECIMEN / Unknown Venipuncture / Unknown 12/30/2018 1:34 PM CDT 12/30/2018 1:34 PM CDT Kia Zamora DO SEND OUTS Final Resul t [facility] [address] [place] [address], [place] * WEB MARKETING ASSISTANT THIN PREP PAP SCREEN (07/23/2005 5:42 PM PRESS TENDER SMOKE SIGNAL) CYTOLOGY CYTOPATHOLOGY REPORT [facility] Status: Final Report [id number] CLINICAL INFORMATION LMP : 07/01/05 Previous Pap Date : MANY YEARS Previous PAP Dx : None Previous [place]/bx date : None Previous Colposcopy/Bx: None Hormone Usage : None Menstrual Status : Irregular Periods Appearance of Cervix : NOT VISUALIZED,OBTAINE D BLINDLY [place]/Bx done today : No HPV Request : Reflex HPV test if PAP Dx ASCUS SPECIMEN SOURCE : Cervical/vaginal ThinPrep Vial, screening SPECIMEN ADEQUACY : Satisfactory for evaluation No endocervical component seen. INTERPRETATION/RE SULT: Negative for intraepithelial lesion or malignancy. Cytology 1st Screener : jeff Signed by: jeff NOTE: The Pap test is a screening technique, not a diagnostic procedure. It is used primarily to screen for squamous cancers and precursor lesions. Published studies have shown that it is subject to both false negative and false positive results. The pap test should not be used as the sole means to diagnose or exclude pre-malignant and malignant lesions. COLLECTED: 07/23/05 ACCESSIONED: 07/23/05 SIGNED: 07/31/05 [facility] Cervix SPECIMEN FROM UTERINE CERVIX / Unknown 07/23/2005 5:42 PM PRESS TENDER SMOKE SIGNAL 07/23/2005 5:39 PM PRESS TENDER SMOKE SIGNAL us Dylan Clark MD PATHOLOGY/CYTOLOGY Final Resu lt [facility] INTERNAL ZIP [id number] [address] from Last 3 Months or Most Recently Relevant to Health Maintenance Insurance [facility] Advance Directives Documents on File Type Date Recorded Patient Fitness Technician Expl anation Healthcare Directive 01/05/2021 [facility] ALEJANDRO KINGON , 01/05/2021 * Full Code (Latest Code Status on File) Date Activated Date Inactivated Comments 12/06/2022 1:54 AM 12/08/2022 8:57 PM Question Answer Comments Code Status Discussion: Reviewed Preferences * Full Code Date Activated Date Inactivated Comments 09/16/2022 12:39 PM 09/16/2022 4:06 PM Question Answer Comments Code Status Discussion: Reviewed Preferences * Full Code Date Activated Date Inactivated Comments 09/09/2022 4:03 PM 09/10/2022 12:10 PM Question Answer Comments Code Status Discussion: Other (specify in commen ts): * Full Code Date Activated Date Inactivated Comments 09/07/2022 1:41 PM 09/07/2022 5:32 PM Question Answer Comments Code Status Discussion: Other * DNR Date Activated Date Inactivated Comments 10/22/2021 10:34 AM 10/23/2021 12:45 PM Pt has valente ing will. Will rescind DNR for procedure. Question Answer Comments Code Status Discussion: Reviewed Preferences Care Teams Geothermal Powerplant Mechanic Relationship Specialty Start Date End Date Kia Zamora DO PCP - General Family Practice 01/04/12
--- OUTSIDE RECORDS SUMMARY | 2025-02-14 07:50 | XMS_ITS | Clinical Summary ---
Author Organization [facility] Address [address] [place] [address]. [place] [address] Care Team Providers Care Straw Hat Brim Raiser Operator Name Role Phone [facility], [facility] Primary Care Provide r Allergies No known active allergies Medications TRAZODONE HCL 20 mg At Bedtime. Active CITALOPRAM HYDROBROMIDE PO Take 20 mg by mouth every evening. Active oxyCODONE-acetami nophen (PERCOCET) 5-325 MG per tablet Take 1-2 tablets by mouth every 4 hours as needed for pain. 30 tablet 0 2 Active ibuprofen (ADVIL,MOTRIN) 600 MG tablet Take 1 tablet by mouth every 6 hours as needed for pain. 30 tablet 1 2 Active methocarbamol (ROBAXIN) 500 MG tablet Take 2 tablets by mouth 3 times daily as needed. 30 tablet 1 2 Active Social History Tobacco Use Types Packs/Day Years Used Date Smoking Tobacco: Never Assessed Comments No Sex and Gender Information Value Date Recorded Sex Assigned at Not on file Legal Sex Female 3:41 AM ELECTRICAL LOGGER Gender Identity Not on file Sexual Orientation Not on file Last Filed Vital Signs Vital Sign Reading Time Taken Comments Blood Pressure 109/84 08/26/2024 5:25 PM CDT Pulse 75 08/26/2024 5:25 PM CDT Temperature 36.8 C (98.2 F) 08/26/2024 2:19 PM CDT Respiratory Rate 20 08/26/2024 5:25 PM CDT Oxygen Saturation 99% 08/26/2024 5:25 PM CDT Inhaled Oxygen Concentration - - Weight 124.7 kg (275 lb) 04/17/2012 1:49 PM ELECTRICAL LOGGER Height 175.3 cm (5' 9) 04/17/2012 1:49 PM ELECTRICAL LOGGER Body Mass Index 40.61 04/17/2012 1:49 PM ELECTRICAL LOGGER Plan of Treatment Health Maintenance Due Date Last Done Comments ADVANCE CARE PLANNING 1960 ANNUAL REVIEW OF HM ORDERS 1960 CT COLONOGRAPHY 1960 DIABETES SCREENING 1960 FIT 1960 FLEX SIG 1960 YEARLY PREVENTIVE VISIT 1963 COLONOSCOPY 1970 HIV SCREENING 1975 LIPID 2000 PAP 07/23/2008 07/23/2005 PHQ-2 (once per calendar year) 2024 INFLUENZA VACCINE (#1) 2025 , 03/02/2023, 03/18/2022, Additional history exists MAMMO SCREENING 08/01/2026 08/01/2024, 08/2024, 05/13/2023, Additional history exists COLORECTAL CANCER SCREENING 08/15/2027 sDNA (Cologuard) 08/15/2027 08/14/2024, , 08/14/2024 DTAP/TDAP/TD VACCINE (3 - Td or Tdap) 09/23/2031 09/22/2021, 06/02/2012 RSV VACCINE (1 - 1-dose 75+ series) 2035 HEPATITIS C SCREENING Completed 12/30/2018 ZOSTER VACCINE Completed 07/12/2020, 05/09/2020 PNEUMOCOCCAL VACCINE 50+ YEARS Completed 01/26/2024 COVID-19 VACCINE Completed 03/28/2024, , 03/18/2022, Additional history exists HPV VACCINE (No Doses Required) Completed MENINGITIS VACCINE Aged Out No longer eligible based on patient's age to complete this topic Insurance BCBS INDIVIDUAL Care Teams Straw Hat Brim Raiser Operator Relationship Specialty Start Date End Date [facility], [address] [address] PCP - General 08/26/24
[2025-02-14] MEDS: 0.9 % SODIUM CHLORIDE 500 ML 500 ML IV (08:05)
[2025-02-14 08:10] LABS: Hematocrit* 44.6 % (33.0-51.0); Hemoglobin* 14.2 gm/dL (12.0-16.0); Immature Granulocytes Abs Auto 0.01 K/uL (0.00-0.30); Immature Granulocytes Pct Auto 0.1 %; Lymphocytes Absolute Auto 1.70 K/uL (0.90-2.90); Mean Corpuscular HGB Conc 32 gm/dL (32-36); Mean Corpuscular Hemoglobin 30 pg (26-34); Mean Corpuscular Volume 93 fL (80-100); RDW Coefficient of Variation % 14.4 % (11.5-15.5); Red Blood Count* 4.81 m/uL (4.00-5.20); White Blood Count* 8.17 K/uL (4.50-11.00)
[2025-02-14] MEDS: ADENOSINE 6 MG/2ML INJ IVP ×2 (08:10→08:12)
[2025-02-14 08:12] LABS: Slide Review Reflex No
--- NOTE | 2025-02-14 08:19 | ED.GENADULT ---
HPI - General Adult General Time Seen by Provider: 08:05 Date Seen: 02/14/25 Chief complaint: Chest Pain Stated complaint: Chest pain, short of breath Time Seen by Provider: 02/14/25 08:19 Source: patient and RN notes reviewed History of Present Illness HPI narrative: This 64-year-old female is ambulatory into the ED this morning with complaints of shortness of breath, just feeling terrible. She states she cannot walk or move at all without becoming severely short of breath. She stop taking Eliquis 5 months ago because she could not afford it, quit all of her other medicines couple months ago due to cost issue. She has an extensive history of arrhythmias. Brief review of her chart shows that she has been here both with atrial fibrillation with RVR and atrial flutter. She states she has had at least tender 12 cardioversions, she has had ablation is a. She notes no edema. She cannot feel of her heart is racing or not. No chest pain per se. She told nursing staff that her symptoms were 2-3 days but she admits she has not been feeling well for couple of weeks. She really cannot tell when her heart rate is fast or not. There are times when she feels like her heart has been pounding out of her chest. Related Data Home Medications ?Medication ?Instructions ?Recorded ?Confirmed apixaban 5 mg tablet (Eliquis) 5 mg PO BID 10/30/22 02/14/25 atorvastatin 20 mg tablet 20 mg PO DAILY 10/30/22 02/14/25 pantoprazole 40 mg tablet,delayed 40 mg PO DAILY 10/30/22 02/14/25 release sotalol 80 mg tablet 80 mg PO BID 10/30/22 02/14/25 spironolactone 25 mg tablet 12.5 mg PO DAILY 12/02/22 02/14/25 Previous Rx's ?Medication ?Instructions ?Recorded diltiazem HCl 120 mg capsule,24 120 mg PO DAILY #30 caps 02/14/25 hr,extended release furosemide 20 mg tablet 20 mg PO DAILY #3 tabs 02/14/25 warfarin 5 mg tablet 5 mg PO DAILY #30 tabs 02/14/25 Allergies Allergy/AdvReac Type Severity Reaction Status Date / Time Latex, Natural Rubber Allergy Unknown Verified 02/14/25 07:52 Review of Systems Status of ROS: Reports: 6 or more systems reviewed and unremarkable except as noted in History and below PFSH PFS Social History Smoking Status: Never smoker Second hand tobacco smoke exposure: No How often do you have a drink containing alcohol: never How often do you have six or more drinks on one occasion: Never AUDIT-C Alcohol total score: 0 Non-prescribed substance use: denies use Exam Const: Vital Signs, click to edit/add: Vital Signs - 24 hr 02/14/25 07:53 02/14/25 07:54 02/14/25 07:55 Pulse Rate 195 H 195 H Pulse Rate [Pulse Oximeter] 194 H Respiratory Rate 16 20 Blood Pressure 124/109 H Blood Pressure [Le ft Forearm] 124/109 H Pulse Oximetry 94 95 94 Oxygen Delivery Me thod Room Air 02/14/25 08:00 02/14/25 08:06 02/14/25 08:15 Pulse Rate 194 H 197 H 193 H Pulse Rate [Pulse Oximeter] Respiratory Rate 15 16 17 Blood Pressure 144/105 H Blood Pressure [Le ft Forearm] Pulse Oximetry 96 94 96 Oxygen Delivery Me thod 02/14/25 08:30 02/14/25 08:33 02/14/25 08:43 Pulse Rate 192 H 190 H Pulse Rate [Pulse Oximeter] Respiratory Rate 16 16 Blood Pressure 127/89 Blood Pressure [Le ft Forearm] Pulse Oximetry 94 92 95 Oxygen Delivery Me thod 02/14/25 08:45 02/14/25 08:51 02/14/25 08:52 Pulse Rate 193 H 98 98 Pulse Rate [Pulse Oximeter] Respiratory Rate 15 21 13 Blood Pressure 86/30 L Blood Pressure [Le ft Forearm] Pulse Oximetry 96 93 95 Oxygen Delivery Me thod 02/14/25 08:59 02/14/25 09:00 02/14/25 09:02 Pulse Rate 98 98 99 Pulse Rate [Pulse Oximeter] Respiratory Rate 17 16 15 Blood Pressure 119/69 120/69 Blood Pressure [Le ft Forearm] Pulse Oximetry 93 94 94 Oxygen Delivery Me thod 02/14/25 09:15 02/14/25 09:22 02/14/25 09:30 Pulse Rate 99 98 98 Pulse Rate [Pulse Oximeter] Respiratory Rate Blood Pressure 116/73 Blood Pressure [Le ft Forearm] Pulse Oximetry 95 95 94 Oxygen Delivery Me thod 02/14/25 09:42 02/14/25 09:45 Pulse Rate 99 Pulse Rate [Pulse Oximeter] Respiratory Rate 17 Blood Pressure 117/83 Blood Pressure [Le ft Forearm] Pulse Oximetry 93 Oxygen Delivery Me thod This 64-year-old female is alert, interactive, no apparent distress. She is sitting in the bed breathing is in room air in exam room 8. Sclera clear, face atraumatic. Neck is thick but no noted of any distension. She is able to sit up, lungs are clear, good air entry, wheeze or crackles, no tachypnea or accessory muscle use. CV is fast, cannot hear any aberrant heart sounds due to the rhythm. She is consistently in 190s and irregular rhythm on the monitor, when I have her sit up, she does go up to 204. abdomen is obese but soft. She has no lower extremity edema. We attempted initial 6 mg of adenosine but there was problems getting it in rapidly. A 2nd 6 mg adenosine dose was given rapidly. She had some initial slowing into a narrow complex with a P-wave and then went back up into a narrow complex rapid rhythm at 192 again. EKG was obtained. Will call cardiology at this point. Documenting provider has reviewed patient's vital signs: yes Course Course ED Course: Initial attempt at adenosine showed she slowed into a sinus rhythm but then went back up to a heart rate of 192. Per my a discussion with Cardiology, will have her try 20 mg IV Cardizem. Reevaluation(s) Time of Reevaluation #1: 09:05 Reevaluation #1: Patient cardioverted, nursing staff has an EKG showing normal sinus rhythm, 97 beats per minute. I have talked to the patient regarding this. We have discussed that she probably should consider a dose of Cardizem daily to help suppress rhythm. We have also talked about anticoagulation with Coumadin further. Most clinics have a Coumadin clinic or follow patient's outpatient so they do not have to see a physician each time. She does agree to start. Will send her with a prescription for Coumadin at discharge. At this time it is likely that she will discharge. She understands that the principal archaeologist's is putting a note in to electrophysiology to contact her for follow-up. Time of Reevaluation #2: 09:40 Reevaluation #2: Patient and I have discussed that she has a bit of fluid overload likely from being in this underlying tachycardia. I have recommended a few days of Lasix to see if it helps with the breathing. She is going to need close follow-up outpatient, would recommend this Wednesday. She does agree to start anticoagulation and she understands the need for the Coumadin to be monitored, would recommend the INR be checked on Wednesday, Wednesday at the latest. Will also place her on Cardizem for rate control, hopeful suppression SVT or potentially the atrial flutter with aberrancy. She is to hear from EP at [facility]. She understands that if she is having problems in the interim, I do recommend return to the ED. Consultations Consultation #1: Spoke with Dr. Ricardo from [facility], on-call Cardiology. Reviewed the EKGs that I have. He believes it might be underlying if fibrillation with aberrancy. We discussed trying Cardizem 20 mg IV. Reviewed that she had been off all of her medicines. He agreed with me that anticoagulation with Coumadin would be helpful. He is hopeful that there might be generic Eliquis within the next year. If I am not achieving rate control or cardioversion chemically with her, I will be calling him back. He will accept her in transfer if we are not making headway with her arrhythmia. Time: 08:21 Vital Signs Vital signs: Initial Vital Signs Temperature Source Temporal Artery Scan 02/14/25 07:53 Pulse Rate 194 H 02/14/25 07:53 Blood Pressure 124/109 H 02/14/25 07:53 Blood Pressure Mean 114 H 02/14/25 07:53 Blood Pressure Position Semi-Fowlers 02/14/25 07:53 Pulse Oximetry 94 02/14/25 07:53 Oxygen Delivery Method Room Air 02/14/25 07:53 Vital Signs Pulse Rate 194 H 02/14/25 07:53 Blood Pressure 124/109 H 02/14/25 07:53 Pulse Oximetry 94 02/14/25 07:53 Oxygen Delivery Method Room Air 02/14/25 07:53 Pulse Rate 99 02/14/25 09:45 Respiratory Rate 17 02/14/25 09:42 Blood Pressure 117/83 02/14/25 09:42 Pulse Oximetry 93 02/14/25 09:45 Oxygen Delivery Method Room Air 02/14/25 07:53 Medications Administered Medications: Discontinued Medications Generic Name Dose Route Start Last Admin Trade Name Effie PRN Reason Stop Dose Admin Adenosine 6 mg 02/14/25 08:21 02/14/25 08:10 Adenosine 6 Mg/2ml Inj IVP 02/14/25 08:22 6 mg ONCE ONE Administration Adenosine 6 mg 02/14/25 08:21 02/14/25 08:12 Adenosine 6 Mg/2ml Inj IVP 02/14/25 08:22 6 mg ONCE ONE Administration Diltiazem HCl 20 mg 02/14/25 08:24 02/14/25 08:43 Diltiazem 5 Mg/Ml Inj IVP 02/14/25 08:25 20 mg ONCE ONE Administration Sodium Chloride 500 mls @ 500 mls/hr 02/14/25 10:08 02/14/25 10:00 0.9 % Sodium Chloride 500 Ml IV 02/14/25 11:07 Infused .Q1H ONE Infusion Metoprolol Tartrate 5 mg 02/14/25 07:54 02/14/25 08:27 Metoprolol Tartrate 1 Mg/Ml Inj IVP 02/14/25 07:55 Not Given ONCE ONE Metoprolol Tartrate 25 mg 02/14/25 07:54 02/14/25 08:27 Metoprolol Tartrate 25 Mg Tablet PO 02/14/25 07:55 Not Given ONCE ONE Medical Decision Making Lab Data Lab results reviewed: Yes I reviewed the patient's lab results Labs: Lab Results 02/14/25 Range/Units 07:55 WBC 8.17 (4.50-11.00) K/uL RBC 4.81 (4.00-5.20) m/uL Hgb 14.2 (12.0-16.0) gm/dL Hct 44.6 (33.0-51.0) % MCV 93 (80-100) fL MCH 30 (26-34) pg MCHC 32 (32-36) gm/dL RDW Coeff of Odell 14.4 (11.5-15.5) % Plt Count 377 (140-440) K/uL Neut % (Auto) 68.0 (42.0-72.0) % Lymph % (Auto) 20.8 (20-44) % [place] % (Auto) 7.6 (0.0-11.0) % Eos % (Auto) 2.2 (0.0-7.0) % Baso % (Auto) 1.3 (0.0-3.0) % Neut # (Auto) 5.55 (1.7-7.0) K/uL Lymph # (Auto) 1.70 (0.90-2.90) K/uL [place] # (Auto) 0.60 (0.00-0.90) K/UL Eos # (Auto) 0.18 (0.00-0.50) K/uL Baso # (Auto) 0.11 (0.00-0.30) K/uL Abs Immat Gran (auto) 0.01 (0.00-0.30) K/uL Imm/Tot Granulo (auto) 0.1 % Sodium 139 (135-149) mmol/L Potassium 4.4 (3.6-5.1) mmol/L Chloride 107 (96-114) mmol/L Carbon Dioxide 26 (20-32) mmol/L Anion Gap 6 L (7-15) mEq/L BUN 17 (7-30) mg/dL Creatinine 1.0 (0.5-1.5) mg/dL Estimated GFR 63 ml/min Glucose 145 H (60-115) mg/dL Calcium 9.2 (8.4-10.6) mg/dL Magnesium 1.9 (1.5-2.6) mg/dL NT-Pro-B Natriuret Pep 4210 H (See Note) pg/mL Imaging Data Chest x-ray: Attestation: I have reviewed the pertinent imaging results. My impression: Pacer pad obscures left lung field but right lung field looks like there could be some congestive changes. Await Radiology over-read. 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 Site :?[id number] Study:?XRay-Chest 1V PORTABLE-02/14/2025 8:45:21 AM Ordering Physician:Sai Blanchard Final Report: INDICATION: Arrhythmia. Dyspnea. COMPARISON: October 30, 2022 TECHNIQUE: A single view study was obtained as a portable CXR, February 14, 2023 FINDINGS: As discussed below IMPRESSION: 1. Mildly enlarged heart is similar in appearance to the prior study. External pacer leads partially obscure the field of view. 2. Abnormal lung and vascular findings probably representing CHF/edema. An infectious/inflammatory process is felt less likely but not entirely excluded. 3. No large effusions. No pneumothorax. 4. No acute osseous abnormality. Dictated by Massimo Cabrera MD @ 02/14/2025 8:56:05 AM (Electronic Signature) ECG Data Attestation: I personally reviewed and interpreted this ECG as follows: ( tachycardia at 194 beats per minute, wide complex but regular. Certainly could be SVT but patient has complex arrhythmia history.) Prior ECG tracings: available for review Interpretation: EKG 2. Showing supraventricular tachycardia, 192 beats per minute. Has changed to a narrow complex but is at the same rate. EKG 3. Showing sinus rhythm, 97 beats per minute. No acute ischemic change. Critical Care Time Critical Care Time Critical Care Time: Yes Attestation: The patient required my highest level preparedness to intervene emergently and I personally spent this critical care time directly and personally managing the patient. This critical care time included: Obtaining a history; Examining the patient; Pulse oximetry; Ordering and reviewing of studies; Arranging urgent treatment with development of a management plan; Evaluation of patients response to treatment; Frequent reassessment discussions with other providers. This critical care time was performed to assess and manage the high probability of imminent life-threatening deterioration that could result in multiorgan failure. It was exclusive of separate billable procedures and treating other patients and teaching time. Total Critical Care Time in Minutes: 30 Discharge Plan Discharge Clinical Impression: Arrhythmia Qualifiers: Arrhythmia type: unspecified cardiac arrhythmia Qualified Code(s): I49.9 - Cardiac arrhythmia, unspecified Congestive heart failure Qualifiers: Heart failure type: unspecified Heart failure chronicity: acute Qualified Code(s): I50.9 - Heart failure, unspecified Patient Disposition: Home, Self-Care Condition: Improved Instructions: Heart Failure (ED), Heart Healthy Diet (ED) Additional Instructions: It is not clear whether this was supraventricular tachycardia (SVT) or atrial flutter with aberrancy. Electrophysiology from [facility] should be reaching out to you to get you scheduled for a follow-up. The strain of being in this tachycardic rhythm did cause a little fluid buildup in your lungs. We are going to give you 3 days of Lasix, you will need to follow-up with your primary care provider to see if this needs to be ongoing. Electrolytes need to be rechecked at that visit as Lasix can deplete potassium. You really do need to be on a blood thinner to help prevent strokes with your underlying rhythm history. We will initiate Coumadin, you will need an INR done in clinic hopefully on Wednesday, Wednesday at the latest. We will also be starting diltiazem/Cardizem to help with rhythm rate control, this can suppress SVT too. Activity Level: Activity as Tolerated Prescriptions: New furosemide 20 mg tablet 20 mg PO DAILY Qty: 3 0RF diltiazem HCl 120 mg capsule,extended release 24hr 120 mg PO DAILY Qty: 30 0RF warfarin 5 mg tablet 5 mg PO DAILY Qty: 30 0RF No Action spironolactone 25 mg tablet 12.5 mg PO DAILY atorvastatin 20 mg tablet 20 mg PO DAILY sotalol 80 mg tablet 80 mg PO BID pantoprazole 40 mg tablet,delayed release (DR/EC) 40 mg PO DAILY Eliquis 5 mg tablet 5 mg PO BID Follow Up/Referrals: Kia Zamora DO [Primary Care Provider, Family Practice] Stand Alone Forms: [employer] Info Instructions
[2025-02-14 08:23] LABS: Chloride* 107 mmol/L (96-114); Sodium* 139 mmol/L (135-149)
[2025-02-14 08:24] LABS: Potassium* 4.4 mmol/L (3.6-5.1)
[2025-02-14 08:26] LABS: Blood Urea Nitrogen* 17 mg/dL (7-30); Creatinine* 1.0 mg/dL (0.5-1.5); Estimated Glomerular Filt Rate 63 ml/min
--- NOTE | 2025-02-14 08:26 | CRLHL7_ITS ---
For Patients: As a result of the Century Cures Act, medical imaging exams and procedure reports are released immediately into your electronic medical record. You may view this report before your referring provider. If you have questions, please contact your health care provider. INDICATION: Arrhythmia. Dyspnea. COMPARISON: October 30, 2022 TECHNIQUE: A single view study was obtained as a portable CXR, February 14, 2023 FINDINGS: As discussed below IMPRESSION: 1. Mildly enlarged heart is similar in appearance to the prior study. External pacer leads partially obscure the field of view. 2. Abnormal lung and vascular findings probably representing CHF/edema. An infectious/inflammatory process is felt less likely but not entirely excluded. 3. No large effusions. No pneumothorax. 4. No acute osseous abnormality. Dictated by Massimo Cabrera MD @ 02/14/2025 8:56:05 AM (Electronically Signed)
[2025-02-14 08:27] LABS: Anion Gap 6 mEq/L (7-15); Calcium* 9.2 mg/dL (8.4-10.6); Carbon Dioxide* 26 mmol/L (20-32); Glucose* 145 mg/dL (60-115)
[2025-02-14 08:40] LABS: NT Pro B Type NatriureticPept* 4210 pg/mL (See Note)
[2025-02-14] MEDS: dilTIAZem 5 MG/ML inj 20 MG IVP (08:43)
--- OUTSIDE RECORDS SUMMARY | 2025-02-14 09:45 | XMS_ITS | Clinical Summary ---
Author Organization [facility] Address [address] [place] [address] Care Team Providers Care Tobacco Grower Name Role Phone Kia Zamora DO Primary Care Provider [phone] Source Comments You are receiving this document as you are listed as the primary care provider,follow-up provider, or the patient has been referred to you for consultation.This is in compliance with the Medicare and[facility] EHR Incentive Program,which states Providers who transition their patient to another setting of careor provider of care or refers their patient to another provider of care shouldprovide summary care record for each transition of care or referral. [facility] Allerg[facility] Active Allergy Reactions Criticality Noted Date Comments Bupropion Anxiety 04/16/2016 Medications cholecalciferol (VITAMIN D3) 1000 UNITS tablet Take 1,000 Units by mouth daily. Active aspirin 81 MG chewable tablet Take 1 Tab by mouth daily. 100 Tab 3 02/24/2016 Active Active Problems Problem Noted Date Diagnosed Date Paroxysmal atrial fibrillation 04/16/2016 Overview (04/16/2016): Normal echocardiogram in 2016. Normal Lexiscan nuclear perfusion scan in 2016. Atrial fibrillation with RVR 02/01/2016 Diverticulitis 02/01/2016 Social History Tobacco Use Types Packs/Day Years Used Date Smoking Tobacco: Never Comments No Sex and Gender Information Value Date Recorded Sex Assigned at Not on file Legal Sex Female 7:30 AM CDT Gender Identity Not on file Sexual Orientation Not on file Last Filed Vital Signs Vital Sign Reading Time Taken Comments Blood Pressure 116/78 04/16/2016 1:17 PM VENDOR MANAGEMENT SPECIALIST Pulse 58 04/16/2016 1:17 PM VENDOR MANAGEMENT SPECIALIST Temperature 37 C (98.6 F) 02/04/2016 11:10 AM CDT Respiratory Rate 15 02/04/2016 11:10 AM CDT Oxygen Saturation 94% 02/04/2016 11:10 AM CDT Inhaled Oxygen Concentration - - Weight 117.9 kg (260 lb) 04/16/2016 1:17 PM VENDOR MANAGEMENT SPECIALIST Height - - Body Mass Index - - Plan of Treatment Health Maintenance Due Date Last Done Comments Cervical Cancer Screening Due 1960 Colon Cancer Screening Plan Due 1960 Hep C Screening (Preventive Services) 1960 Mammogram 1960 HIV Screening (Preventive Services) 1976 Adult Preventive Visit 1978 Cholesterol 2005 Pneumococcal Vaccine 50+ Yrs (1 of 1 - PCV) 2010 Zoster/Shingles Vaccine (1 of 2) 2010 DTaP/Tdap/Td Vaccine (2 - Tdap) 06/02/2022 3 COVID-19 Vaccine ( - 2023-2 5 season) 2025 Influenza Vaccine (#1) 2025 RSV Vaccine (1 - 1-dose 75+ series) 2035 HepA Vaccine Aged Out No longer eligi ble based on patient's age to complete this topic HepB Vaccine Aged Out No longer eligi ble based on patient's age to complete this topic Hib Vaccine Aged Out No longer eligi ble based on patient's age to complete this topic IPV (Polio) Vaccine Aged Out No longe r eligible based on patient's age to complete this topic MCV4 Vaccine Aged Out No longer eligi ble based on patient's age to complete this topic Meningococcal B Vaccine Aged Out No l onger eligible based on patient's age to complete this topic Insurance [facility] [employer] Advance Directives * Full Code (Latest Code Status on File) Date Activated Date Inactivated Comments 02/01/2016 5:14 PM 02/06/2016 2:18 PM Care Teams Tobacco Grower Relationship Specialty [place] [id number] [place] [address] PCP - General Family Practice 02/01/16
== END 2025-02-14 10:05 | disposition home or self-care (01) ==
PROVIDERS: Family Medicine; Emergency Provider Family Medicine; PCP Family Medicine
DX: I49.9 Cardiac arrhythmia, unspecified (principal); I50.9 Heart failure, unspecified
CPT/HCPCS: 36415; 71045; 80048; 83735; 83880; 85025; 93005; 94761; 96374; 96376; 99284; 99291; J0153; J7030

== ENCOUNTER 2025-05-28 07:48 | Emergency (ER) | payer BC, SELFPAY ==
--- OUTSIDE RECORDS SUMMARY | 2025-05-28 07:50 | XMS_ITS | Clinical Summary ---
Author Organization [facility] Address [address] [place] [address] Care Team Providers Care Sales Superintendent Name Role Phone Kia Zamora Primary Care Provider [phone] Allergies Active AllergyReactionsCriticalityNoted NyzoApepftrtMalhxOnjmm03/12/2017Unlisted Allergen (Include Detail In Comments)Other - Describe In Comment Field01/22/2015 Runny nose, itchy eyes-seasonal allergies OeqdjmzvkUehwlik88/16/2014 Surges of hyperness Medications MedicationSigDispense QuantityRefillsLast FilledStart DateEnd DateStatus apixaban (ELIQUIS) 5 mg tablet Indications:prevent thromboembolism in chronic atrial fibrillationTake 1 Tablet (5 mg) by mouth two times daily. 60 Tablet 10:08 AM CST5Active amiodarone (CORDARONE) 200 mg tablet Indications:Persistent atrial fibrillation (HC)Take 1 Tablet (200 mg) by mouth once daily. 90 Tablet 9:42 AM CST5Active furosemide (LASIX) 20 mg tablet Indications:Atrial fibrillation and flutter (HC)Take 1 Tablet (20 mg) by mouth once daily in the morning. Take for 3-5 days or until back to baseline weight. 7 Tablet 04/12/2025 9:42 AM CST5Active pantoprazole (PROTONIX) 40 mg delayed-release tablet Indications:Atrial fibrillation and flutter (HC)Take 1 Tablet (40 mg) by mouth once daily. 14 Tablet 04/12/2025 9:42 AM CST5Active metoprolol succinate (TOPROL XL) 25 mg Sustained-Release tablet Indications:Persistent atrial fibrillation (HC),Heart failure, unspecified HF chronicity, unspecified heart failure type (HC)Take one-half Tablet (12.5 mg) by mouth once daily. 30 Tablet 5Active atorvastatin (LIPITOR) 20 mg tablet Indications:Elevated coronary artery calcium scoreTake 1 Tablet (20 mg) by mouth at bedtime. 100 Tablet 11:07 AM CST5Active cephalexin 500 mg capsule Indications:EpistaxisTake 1 Capsule (500 mg) by mouth two times daily. 10 Capsule 05/25/2025 4:07 PM CST5Active cephalexin 500 mg capsule Indications:EpistaxisTake 1 Capsule (500 mg) by mouth two times daily for 5 days. 10 Capsule 5107/26/2024Discontinued Active Problems ProblemNoted DateDiagnosed DateAtrial fibrillation and tushqly8804/11/2025Morbid obesity, unspecified obesity type07/17/2024Primary osteoarthritis of right knee 2Chronic systolic congestive heart fjxqijz03/25/2022Chest pain 01/24/20201250Ohuqfeyfvhcu14/20/2020CKD (chronic kidney disease), stage III 07/24/20191021Jcdkeqpffhv50/03/2019Essential rkxnfcpwyuxl90/02/2019Dyslipidemia 12/30/2018Dilated cardiomyopathy (HC) tachy mediated history of08/03/2018 Paroxysmal atrial hxnzbefoejlu68/03/2016 Overview (09/22/2021): CHADVASC score 1 - aspirin recommended Normal echocardiogram in 2016. Normal Lexiscan nuclear perfusion scan in 2016. SCOTT (generalized anxiety disorder)06/22/2014Morbid obesity with BMI of 50.0- 59.9, adult09/20/2012OSA 02/25/2012 AHI- 13, REM 311Depression, major, in pbfdlvlaz70/20/2012 Overview (06/22/2014): Celexa Klonopin Abilify 2mg -- trying other meds first Wellbutrin 150mg did not tolerate Effexor low dose jolts of anxiety Insomnia, yafuickwike67/11/2012typical chest pain08/07/2010 Overview (08/07/2010): [place] ER visit 0n 07/23/2010. STRESS ECHO: 1. Negative for myocardial ischemia. 2.EF 65% 3. Left Ventricular End systolic volume decreased with stress Resolved Problems ProblemNoted DateDiagnosed DateResolved DateElevated ctkepepr71/26/2020 06/16/20216122Ozcakvzavowwto91/02/201606/02/5516Xzffilwjlca72 Mnikgbddv33Insomnia, vstcejhyrkx95Adjustment disorder with fwlmcgl61Insomnia, kfjnvwymrph60/11/2012 02/09/2012djustment disorder with mixed anxiety and depressed mood10/10/2009 08/18/2012CELLULITIS of L labia /28/EXAMINATION, PREOPERATIVE NECExcessive or frequent gpfkvgbfrjqo35/08/2000 06/16/2021Lump or mass in uffzgw30ough01/21/2006 Encounters DateTypeDepartmentCare BjdzOcoppgfista43/29/2025Nurse Triage [facility] [address] [facility] [place] [address] Kia Zamora, Nose Problem (Nosebleed )05/25/2025 1:18 PM HOSPICE RN - 05/25/2025 4:11 PM HOSPICE RN Emergency [facility] Emergency Department [address] [place] [address] Claude Cosme MD Epistaxis (Primary Dx) Discharge Disposition: Home Self Care05/25/20250211Ymtpui83/19/2025Telephone [facility] [address] [place] [phone] Ottoniel Rose MD Post Tqdwgzhbl19/04/2025 8:15 AM CSTAnesthesia Event [facility] [address] [place] [address] Levar Sanz MD 04/11/2025 6:39 AM HOSPICE RN - 04/12/2025 1:30 PM CSTHospital Encounter [facility] [address] [place] [address] Scotty Mata MD Thompson, Kelly Ann, CRNA Taylor, Good Whitlock MD Atrial fibrillation and flutter (HC) (Primary Dx); Persistent atrial fibrillation (HC); Heart failure, unspecified HF chronicity, unspecified heart failure type (HC); Elevated coronary artery calcium score Discharge Disposition: Home Self Care04/11/20258259Jtwpqj73/11/2025Telephone [facility] [address] [facility] [address] [place] [address] Eboni Washington, RN Urvuzrnzr06/22/2025 1:00 PM CDTNurse/Clinic Staff Only [place] [id number] [place] [address] Immunization/Ctlfvfbjc61/22/2025Travelfrom Last 3 Months Immunizations ImmunizationAdministration DatesNext DueCOVID-19 VACCINE SPIKEVAX (MODERNA 50MCG/0.5ML) 12YO+ PFS03/21/2025,03/28/2024,3COVID-19 vaccine (Moderna 50mcg/0.5mL) 12YO+ BIVALENT PF, MDV12COVID-19 vaccine (Pfizer-BioNTech 30mcg/0.3mL) PF, MDV106/26/2020,09/30/2020,09/11/2020INFLUENZA, IIV3 PF (AGE >= 6 MO)02/21/2025,03/28/2024Influenza Virus, Gnadwpyxfcb73/27/2017Influenza, IIV3 (Age >=3 years)06/02/2012Influenza, TLI184,03/18/2022,05/19/2021, 03/01/2020,07/19/2019,02/24/2018Pneumococcal Conj 20-valent (Prevnar 20) 01/26/2024Tdap09/22/2021,06/02/2012Zoster (Shingrix-RZV, recombinant)07/12/2020, 05/09/2020 Family History Medical HistoryRelationNameCommentsUnknownFatherUnknownMotherGeneticOthersister breast ca diag at 41 years old.?Dad dm now .~No?hx of CAD or HTN or colon cancer.Cevfbp-zxcfiaFmlmkmLsnajf-fqjyegmUc Family HistoryRelationName StatusCommentsFatherDeceasedMotherDeceasedOtherSister Social History Tobacco UseTypesPacks/DayYears UsedDateSmoking Tobacco: NeverPassive Smoke Exposure: NeverSmokeless Tobacco: Never Tobacco Cessation:Counseling Given: Not Answered Alcohol UseStandard Drinks/WeekCommentsNo0 (1 standard drink = 0.6 oz pure alcohol)PHQ-2AnswerDate RecordedPHQ-2 TOTAL [id number] Connections AnswerDate RecordedDo you often feel lonely or isolated from those around you?0 02/21/2025lcohol UseAnswerDate RecordedHow often do you have a drink containing alcohol?verage Number of DrinksNot on file02/21/2025Frequency of Binge DrinkingNot on file02/21/2025Financial Resource StrainAnswerDate Recorded Difficulty of Paying Living Wcylywdc488/24/2025Difficulty of Paying Living ExpensesNot on file02/21/2025Food InsecurityAnswerDate RecordedDo you worry your food will run out before you are able to buy more?Transportation NeedsAnswerDate RecordedDoes lack of transportation keep you from medical appointments?Does lack of transportation keep you from work, meetings or getting things that you need?Housing StabilityAnswerDate Recorded What is your housing situation today?Interpersonal SafetyAnswerDate RecordedAre you being hit, kicked, pushed or yelled at (see row info)?No 05/25/2025Interpersonal Safety Abuse 12 - 18Not on file05/25/2025Interpersonal Safety Ambulatory VulnerabilityNot on file05/25/2025UtilitiesAnswerDate Recorded Do you have trouble paying for utilities (for example, heat, electricity, water, phone)?CommentsNoSex and Gender InformationValueDate Recorded Sex Assigned at BirthNot on fileLegal DijNakhfp59/14/2013 5:25 AM CSTGender IdentityNot on fileSexual OrientationNot on file Obstetrics History GravidaParaTermPretermABIABSABEctopicMultipleLivingLive Wmpcza86OkavPyoxvehWQ Total LaborLabor/2nd/9wfRxryuiGreLgpeKsvoYJUJftM3E3QvjqWnbeZlipukiWlcspiw Last Filed Vital Signs Vital SignReadingTime TakenCommentsBlood Uwjvyxqg337/9905/25/2025 1:16 PM HOSPICE RN Qfqsp316605/25/2025 1:16 PM VQZLyqlsnugjch00.9 ??C (98.5 ??F)05/25/2025 1:16 PM CSTRespiratory Olzz835107/26/2024 1:16 PM CSTOxygen Ajzlsbfjyn13%05/25/2025 1:16 PM CSTInhaled Oxygen Concentration--Cjbmfx485.4 kg (325 lb)05/25/2025 1:16 PM CWIHjitha429.7 cm (5' 8)05/25/2025 1:16 PM CSTBody Mass Index49.42107/26/2024 1:16 PM HOSPICE RN Plan of Treatment DateTypeDepartmentCare Team (Latest Contact Info)Plpalqikxgr65/25/2026 11:30 AM CDTOffice Visit [facility] [address] [place], [place] [address] Eboni Pederson PA [address] [place] [address] Health MaintenanceDue DateLast DoneCommentsHIV for age 15-Pap test for age 21-/RSV vaccine for adults or (1 - Risk 50-74 years 1-dose series)2010Depression screening for age 12+01/25/2025 01/26/2024, 03/18/2022, 03/18/2022, Additional history existsMammogram for age 40-7503/603/08/2024, 05/13/2023, 05/13/2022, Additional history existsBMI (ht and wt on same day) for age 18+/, 01/26/2024, 09/13/2023, Additional history existsFecal testing sDNA-FIT (Cologuard) for age 45-75 Lipids for age 45-7509001/26/2024, 10/07/2022, 10/06/2021, Additional history existsTetanus /, 06/02/2012Hepatitis C screening for age 18-45Ngonlnyru99/02/2019Zoster (shingles) series for age 50+Vmbolfsdu97/12/2021, 05/09/2020Pneumococcal series for age 50+Biixyuqoo23/28/2024Influenza XngqdzyAacnoxqnf87/24/2025, 03/28/2024, 03/02/2023, Additional history existsCOVID-19 vaccine iwpprlVrxeflzeh22/22/2025, 03/28/2024, 04/12/2023, Additional history existsHepatitis B series for 19+Aged OutNo longer eligible based on patient's age to complete this topic Procedures Procedure NamePriorityDate/TimeAssociated DiagnosisCommentsEXTRA TUBE LIGHT RBQIKOkbjp58/26/2025 1:49 PM CSTCBC W PLT NO SADOQDOS81/26/2025 1:49 PM HOSPICE RN SCAN-CARDIAC STRIP04/12/2025 8:05 AM CSTEKG 12 LEADEarly AM04/12/2025 6:51 AM HOSPICE RN MAGNESIUMEarly AM04/12/2025 4:40 AM HOSPICE RN POTASSIUMEarly AM04/12/2025 4:40 AM HOSPICE RN SCAN-CARDIAC STRIP04/12/2025 3:00 AM CSTSCAN-CARDIAC STRIP04/11/2025 8:02 PM HOSPICE RN SCAN-CARDIAC STRIP04/11/2025 2:32 PM CSTHCHG ACTIVATED CLOTTING TM CVTimed 04/11/2025 11:34 AM HOSPICE RN HCHG ACTIVATED CLOTTING TM NWPcniq93/12/2025 10:38 AM HOSPICE RN HCHG ACTIVATED CLOTTING TM SBFqsmz26/12/2025 10:18 AM HOSPICE RN HCHG ACTIVATED CLOTTING TM QKIpwsa55/12/2025 9:56 AM HOSPICE RN HCHG ACTIVATED CLOTTING TM TGUyvyx6004/11/2025 9:31 AM HOSPICE RN HCHG ACTIVATED CLOTTING TM GDSqtyx09/12/2025 9:15 AM HOSPICE RN ENDOTRACHEAL JBCBRkpuizz21/12/2025 9:01 AM HOSPICE RN ENDOTRACHEAL LSETUrpfcrc06/12/2025 9:01 AM HOSPICE RN ENDOTRACHEAL MZBCJrlfsyt54/12/2025 9:01 AM HOSPICE RN ENDOTRACHEAL YSLRFlhmswy05/12/2025 9:01 AM HOSPICE RN EP STUDY /VZEBQPUPYlutsrs18/12/2025 8:43 AM HOSPICE RN EXTRA TUBE GOLD/MPQFmjtm60/12/2025 7:12 AM CSTCBC W PLT NO THCQLbzfw52/12/2025 7:12 AM HOSPICE RN BASIC METABOLIC WDDWBMfpaj79/12/2025 7:12 AM HOSPICE RN EKG 12 QGSAFlvnq58/12/2025 7:03 AM HOSPICE RN SCAN-CARDIAC STRIP04/11/2025 12:00 AM HOSPICE RN SDNA-FIT EXTERNAL (COLOGUARD)Psxbgnv5808/14/2024 10:10 AM CDT Screening for colon cancer XR MAMMO ADRIANA BILAT HBHCYWRgpbnqi53/04/2025 10:58 AM HOSPICE RN Visit for screening mammogram LIPID PANEL W REFLEX MEASURED ONZQtkxqjq56/28/2024 12:17 PM CDT Dyslipidemia ANTI KKQTwtaxlf78/02/2019 1:34 PM CDT Encounter for hepatitis C screening test for low risk patient ([place]) CLERK ANALYST THIN PREP PAP AHJRDGCsnhdoe54/23/2006 5:42 PM HOSPICE RN Screening Malignant Neoplasms Cervix from Last 3 Months or Most Recently Relevant to Health Maintenance Results * EXTRA TUBE LIGHT GREEN (05/25/2025 1:49 PM HOSPICE RN)Specimen (Source)Anatomical Location / LateralityCollection Method / VolumeCollection TimeReceived Time BloodBLOOD SPECIMEN / UnknownExtra Tube / Unldabh7405/25/2025 1:49 PM HOSPICE RN 05/25/2025 1:56 PM HOSPICE RN Narrative Authorizing ProviderResult TypeResult StatusThomas Tomas Cosme MDLABORATORY Final ResultPerforming OrganizationAddressCity/State/ZIP CodePhone Number [facility] [id number] [place] [address] * (ABNORMAL) CBC W PLT NO DIFF (05/25/2025 1:49 PM HOSPICE RN) Only the most recent of2 resultswithin the time period is included. ComponentValueRef RangeTest MethodAnalysis TimePerformed AtPathologist Signature WHITE BLOOD COUNT7.64.5 - 11.0 thou/cu mm05/25/2025 1:59 PM [facility] LABORATORYRED BLOOD COUNT4.684.00 - 5.20 mil/cu mm05/25/2025 1:59 PM [facility]ST[facility] USDDCYXTDWKYXUTFNOZI44.612.0 - 16.0 g/dL05/25/2025 1:59 PM [facility] LABORATORYHEMATOCRIT 42.933.0 - 51.0 %05/25/2025 1:59 PM [facility] KRKMMINWYGSNJ9338 - 100 fL05/25/2025 1:59 PM [facility] WYRHKHROPOZPS19.126.0 - 34.0 pg05/25/2025 1:59 PM [facility] AJDYPRBXXZHFRU51.7(L)32.0 - 36.0 g/dL05/25/2025 1:59 PM [facility] UBGZBWBXQBQEL70.011.5 - 15.5 %05/25/2025 1:59 PM [facility] LABORATORYPLATELET MNLVT591080 - 440 thou/cu mm 05/25/2025 1:59 PM [facility] ETHQDINVXRPEC12.16.5 - 11.0 fL05/25/2025 1:59 PM [facility] LABORATORYNRBC0.0% 05/25/2025 1:59 PM [facility] LABORATORYABS NRBC0.0thou /cu mm05/25/2025 1:59 PM [facility] LABORATORYSpecimen (Source)Anatomical Location / LateralityCollection Method / VolumeCollection TimeReceived TimeBloodBLOOD SPECIMEN / UnknownNon-Lab Venipuncture / Unknown 05/25/2025 1:49 PM CST05/25/2025 1:55 PM HOSPICE RN Narrative Authorizing ProviderResult TypeResult StatusThomas Tomas Cosme MDHEMATOLOGY Final ResultPerforming OrganizationAddressCity/State/ZIP CodePhone Number [facility] [address] [place] [address], * SCAN-CARDIAC STRIP (04/12/2025 8:05 AM HOSPICE RN) Narrative Authorizing ProviderResult TypeResult StatusScannerOTHERFinal Result * EKG (04/12/2025 6:51 AM HOSPICE RN) Only the most recent of2 resultswithin the time period is included. ComponentValueRef RangeTest MethodAnalysis TimePerformed AtPathologist Signature InterpretationNormal sinus rhythm Normal ECG When compared with ECG of 11-Apr-2025 07:03, Premature atrial complexes are no longer Present BEYOND NOWVentricular Sirm29HUYNPKMFZ NOWAtrial Smri15JAGKNILBD NOWP-R Interval 176msBEYOND NOWQRS Vswkskvv51czYSHAGP OSDVF723abNOMCLP VEMLVp300zmPHNHRY NOWP Bqbp09zalgizgWGNSHJ NOWR Iawc38nroxnwjAVOXRG NOWT Agjf09yxamgfqLQSWWW NOW Specimen (Source)Anatomical Location / LateralityCollection Method / Volume Collection TimeReceived Time04/12/2025 6:51 AM CST04/12/2025 8:38 PM HOSPICE RN Narrative Authorizing ProviderResult TypeResult StatusJooriana Mata MDEKG ORDFinal ResultPerforming OrganizationAddressCity/State/ZIP CodePhone Number [facility] [place] * POTASSIUM (04/12/2025 4:40 AM HOSPICE RN)ComponentValueRef RangeTest MethodAnalysis TimePerformed AtPathologist SignaturePOTASSIUM4.73.5 - 5.1 mmol/L106/12/2024 6:01 AM CSTNOXUBEE [facility]AL [facility]PITALCENTRAL LABORATORYSpecimen (Source) Anatomical Location / LateralityCollection Method / VolumeCollection Time Received TimeBloodBLOOD SPECIMEN / UnknownVenipuncture / Uoqcqim0504/12/2025 4:40 AM CST04/12/2025 5:32 AM HOSPICE RN Narrative Authorizing ProviderResult TypeResult StatusJooriana Mata MDCHEMISTRYFinal ResultPerforming OrganizationAddressty/State/ZIP CodePhone Number [facility] [address] [place] [address], * MAGNESIUM (04/12/2025 4:40 AM HOSPICE RN)ComponentValueRef RangeTest MethodAnalysis TimePerformed AtPathologist SignatureMAGNESIUM2.11.6 - 2.4 mg/dL04/12/2025 6:01 AM [facility] LABORATORYSpecimen (Source) Anatomical Location / LateralityCollection Method / VolumeCollection Time Received TimeBloodBLOOD SPECIMEN / UnknownVenipuncture / Rgcbtzg1404/12/2025 4:40 AM CST04/12/2025 5:32 AM HOSPICE RN Narrative Authorizing ProviderResult TypeResult StatusScotty Mata [facility] – MADILLHEMISTRYFinal ResultPerforming OrganizationAddressCity/State/ZIP CodePhone Number [facility] [address] [address], [place] * SCAN-CARDIAC STRIP (04/12/2025 3:00 AM HOSPICE RN) Narrative Authorizing ProviderResult TypeResult StatusScannerOTHERFinal Result * SCAN-CARDIAC STRIP (04/11/2025 8:02 PM HOSPICE RN) Narrative Authorizing ProviderResult TypeResult StatusScannerOTHERFinal Result * SCAN-CARDIAC STRIP (04/11/2025 2:32 PM HOSPICE RN) Narrative Authorizing ProviderResult TypeResult StatusScannerOTHERFinal Result * (ABNORMAL) ACTIVATED CLOTTING TIME [id number] ACT (04/11/2025 11:34 AM HOSPICE RN) Only the most recent of6 resultswithin the time period is included. ComponentValueRef RangeTest MethodAnalysis TimePerformed AtPathologist Signature ACTIVATED CLOTTING TIME, XVTN165(H)74 - 125 sec04/12/2025 3:07 PM [facility]STTYL[facility] LABORATORYSpecimen (Source)Anatomical Location / LateralityCollection Method / VolumeCollection TimeReceived TimeBloodBLOOD SPECIMEN / Eaogjlg2804/11/2025 11:34 AM CST04/12/2025 3:07 PM HOSPICE RN Narrative Authorizing ProviderResult TypeResult StatusScotty Mata MDHEMATOLOGYFinal ResultPerforming OrganizationAddressCity/State/ZIP CodePhone Number [facility] [address] [address], [place] * HCHG TUBE PR1, HCHG INSTRUMENT DISP PR10, HCHG KIT CO2 DETECTOR PR5, HCHG STYLET PR1 (04/11/2025 9:01 AM HOSPICE RN) Narrative Mirella Hancock CRNA - 04/11/2025 9:01 AM HOSPICE RN Mirella Hancock CRNA 04/11/2025 9:01 AM Procedure: ETT Patient location during procedure: procedure room ETT Properties Mask Ventilation: easy Final Technique: video laryngoscopy Type: straight Location: oral Cuffed: yes Tube Size: 7.0 mm Stylet: yes Laryngoscope Blade: Glidescope Blade Size: 3 Cormack-Lehane Grade View: 1 Insertion Attempts: 1 Placement Verification: end tidal CO2, symmetrical chest wall movement and cuff palpation Assessment: dentition unchanged, atraumatic and pharynx clear Secured at: 22 Measured From: lips Bite Block: soft Difficulty: 0 (not difficult) Authorizing ProviderResult TypeResult StatusLaura Laurence Amelse CRNAANESTHESIA PX NOTE ORDERABLESFinal Result * EP STUDY /ABLATION (04/11/2025 8:43 AM HOSPICE RN)Anatomical RegionLateralityModality X-Ray Angiography, X-Ray AngiographySpecimen (Source)Anatomical Location / LateralityCollection Method / VolumeCollection TimeReceived Time04/11/2025 8:43 AM HOSPICE RN Narrative Transcriptions Scotty Mata MD - 04/11/2025 3:01 PM CST [facility] Electrophysiology Procedure Report Name: SUSANA WILDER Event Date: 04/11/2025 Excellian ID #: [id number] Date: 1960 Gender: Female Age: 64 LINA #: [id number] Procedure Performed By: SCOTTY MATA [facility] Referring Physician: Summary / Conclusions Summary: Susana Wilder is a 64 y.o. 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 The risk of recurrentatrial arrhythmias is elevated given diffuse LA scar/atrial myopathy. Plan: - Observe overnight (patient's preference) - Bedrest for 3 hours - Resume apixaban tonight - Continue amiodarone for the next 3 months then stop (re-trail ofsotalol would be another consideration for the future) - Lasix 20mg daily x3 days or until back to baseline weight - Protonix 40mg daily x2 weeks, then discontinue - Tentative discharge tomorrow, routine f/u with EP in 3-4 months Pre-Operative Diagnosis ? Atrial Fibrillation, Persistent ? Atrial Flutter Post-Operative Diagnosis ? Same as Pre-operative diagnosis Indications ? Same as Pre-operative diagnosis Consent & Olga Protocol Olga protocol was followed. TIME OUT conducted just prior tostarting procedure confirmed patient identity, site/side, procedure,patient position, and availability of correct equipment and implants (ifapplicable). The risks, benefits, and alternatives of the procedure were discussed withthe patient and written informed consent was obtained. Procedure Description 1. Electrophysiology study including atrial pacing and recording,coronary sinus(left atrial) pacing and recording 2. Pulsed field catheter ablation of atrial fibrillation (pulmonary vein isolation) 3. Three dimensional (3D) electroanatomic mapping system (MDT Affera)used for mapping and ablation 4. Intracardiac echocardiography (ICE) 5. Trans-septal puncture x1 6. Isoproterenol infusion for attempt at arrhythmia induction 7. Posterior wall isolation 8. Lateral mitral isthmus ablation 9. Atypical atrial flutter ablation (felt to be most consistent with byatrial flutter, ablation performed along the lateral ridge and the roofarea anterior to the left superior pulmonary vein) Catheters used: 1. ClassOwl Sphere 9 PFA catheter. 2. Intracardiac echocardiography (ICE) catheter. 3. Deflectable decapolar catheter for pacing and recording in thecoronary sinus. Description of procedures: After informed consent was reaffirmed, the patient was brought to the EPlab in the fasted state in sinus rhythm. After general anesthesia wasinduced and the patient was intubated and he was prepped and draped in theusual sterile fashion. The right groin access site was infiltrated with lidocaine for localanesthesia and then a 9, 8 and 7 Fr sheaths were placed into the rightfemoral vein using ultrasound guidance and the modified Seldingertechnique. Through these sheaths, a 10 pole deflectable diagnosticcatheter was inserted into the coronary sinus and then an intracardiacecho (ICE) was placed via the left femoral vein for assistance with thetrans-septal punctures, monitoring of the catheter tissue interface duringablation, confirmation of catheter positions at the pulmonary vein antraand monitoring for pericardial effusion.The ICE catheter was positioned inthe RA/RV and no significant pericardial effusion was observed. Systemicanticoagulation with intravenous heparin was initiated prior to the transseptal puncture with a target ACT of 350- 400 sec. The Sphere 9 catheter was inserted in to the RA. Voltage mapping of theright atrium was performed showing preserved voltage throughout. The Hislocation was marked. Transisthmus conduction time (TICT) was found to be155 ms, consistent with durable block from the prior procedure, withbidirectional block observed. Transseptal access was then performed, starting by exchanging the short 8French sheath in the right femoral vein over a wire for a PrefaceTransseptal sheath. The ICE view was fixed on the interatrial septum. ABRK needle was inserted into the Preface sheath and dragged down theseptum on GUSTAVO projection until reaching a thin and mid portion of theinteratrial septum with tenting observed on ICE. The needle was thenextended and observed to cross the interatrial septum into the LA whichwas observed on ICE. First the dilator was advanced into the LA, over the needle, and then the needle was removed and a wire was inserted into theLA/left PVs in order to advance the sheath into the LA. The wire anddilator were removed with no issues and sheath position in the LA wasconfirmed on ICE. Mean LA pressure immediately after transseptal puncturewas 21 mmHg. The Sphere 9 catheter was then inserted into the LA once the ACT was >350.Great care was taken, including appropriate aspiration and flushing, wheninserting the catheter into the preface sheath in order to avoidintroducing air into the left atrium. Once the catheter was inserted andvisualized on ice, 3D electroanatomic mapping of the left atrium wasperformed using the Sphere 9 catheter in sinus rhythm. Voltage map wasconsistent with durable isolation of the left pulmonary veins,reconnection of the right pulmonary veins along the posterior wall as well as anterior of the right superior pulmonary vein. Additionally,fractionated electrograms were observed along the posterior wall. Ablation for pulmonary vein isolation was performed around the right PVsusing PFA. Additionally, posterior wall isolation was performed with aninferior line and spot ablation along the posterior wall using PFA. Induction of atrial fibrillation/atrial tachycardia was then attempted and Isuprel was started up to 5 mcg/minute with subsequent increase in heartrate. Burst pacing was performed and atrial flutter was easily induced.Activation mapping was performed during the atrial flutter and the leftatrium, which contained the entire cycle length of the atrial flutter.Early activation, with highly fractionated electrograms, was observed onthe anterior roof area next to the left superior pulmonary vein. Earlysignals were also observed along the lateral ridge. The activation mapwas most consistent with likely a biatrial flutter (although the RA wasnot mapped as the LA contain the entire cycle length) with conductionacross Gordy's bundle versus an epicardial connection involving thelanding zone of the vein of Kingsley. There additionally appeared to besome slow activation through the lateral mitral isthmus line. Pulsedfield ablation was performed along the lateral ridge with no change intachycardia. I then performed ablation at the roof anteriorly next to theleft superior pulmonary vein which terminated the tachycardia. ICE viewsconfirmed that this area was away from the left atrial appendage. Withburst pacing, the same flutter was induced again and once again earlysignals were observed along the anterior roof near the left superiorpulmonary vein. The tachycardia again terminated with PFA applied in thisarea. As such additional lesions were performed around this area. I alsoperformed a lateral mitral isthmus line, using RF next to the mitral valveand PFA for the remainder of the line. Pacing from the sphere 9 catheteron the more anterior aspect of the line showed concentric activation ofthe coronary sinus with late activation of the distal CS, consistent withblock across the line. Isuprel up to 5 mcg/minute was again started andmultiple burst pacing attempts were made with no tachycardia induced.Notably, tachycardia was easy to induce with burst pacing in the beginningof the procedure. As such, at this point, the procedure was deemedcomplete.. The Sphere 9 was then pulled back into the sheath and pulled back to theRA. A His recording was again obtained. At this point the procedure was deemed to be complete. The Sphere 9catheter was removed from the preface sheath. Heparin was then partiallyreversed with protamine. Intracardiac echocardiography showed no evidenceof a pericardial effusion.Catheters were then withdrawn and the sheathswere left in place for removal in the recovery area once the ACT was <200 seconds. The procedure was tolerated well and there were no immediatecomplications noted. In summary: Susana Wilder presented to the EP lab where they had EP study andcatheter ablation to achieve isolation of the pulmonary veins for atrialfibrillation (ablation performed around the right pulmonary veins whichwere reconnected, left pulmonary veins showed durable isolation). The LAshowed diffuse low voltage. Posterior wall isolation was also performed aswas a lateral mitral isthmus line, with block achieved, and ablation olivia atypical, likely biatrial, flutter which repeatedly terminated withablation at the anterior roof next to the left superior pulmonary vein.CTI remained block from prior procedure and RA voltage was largelypreserved. No arrhythmias could be induced after ablation for atrial fibrillation and atrial flutter even with very aggressive programmedatrial stimulation including rapid burst pacing and pacing withextrastimuli as noted above. The patient tolerated the procedure well. Therisk of recurrent atrial arrhythmias is elevated given diffuse LAscar/atrial myopathy. Electrophysiology Study Data Basic Intervals Study State Underlying Rhythm Cycle Length VT PA AH HV QRS [place] QRSMorphology Baseline NSR 851 166 110 45 Post Ablation NSR 588 166 110 45 Arrhythmias Study State Arrhythmia Type Arrhythmia Cycle Length Induction Method Post Ablation A Flutter 520 Burst Pacing Ablation Data Atrial Fibrillation Energy Source Ablation Catheter Used Rhythm During Ablation # of AttemptsMax Muñoz Max Temp. Result Other Sphere 9 Ablation NSR 100 Success Left atrial lesion sets were placed. The left superior pulmonary vein was isolated. The right inferior pulmonary vein was isolated. The right superior pulmonary vein was isolated. Other: ligament of marshal Linear lesion sets were placed in the left atrium. Comments: Total Ablation Time (s):6:34 Atrial Flutter Energy Source Ablation Catheter Used Rhythm During Ablation # of AttemptsMax Muñoz Max Temp. Result NSR Success Cavotricuspid isthmus ablation was performed. (Pre) (Post) CS-ABL Site: 150 Comments: confirmed CTI blocked at start of procedure Catheter Use Catheter Type Catheter Description Insertion Site Intracardiac Site SheathSize Sheath Type Sheath Description Intracardiac Echo AcuNav Diagnostic Ultrasound Catheter, 90cm PhysioSonics RightFemoral Vein HRA 9 Fr. Standard Sidearm Diagnostic Bocanegra CS Catheter, Decapolar, 2-8-2, D-F Curves Right FemoralVein CS 7 Fr. Standard Sidearm Ablation Sphere 9 Right Femoral Vein Map/Abl 8 Fr. Guide Preface Procedure(s) Performed ? 3D Mapping ? Programmed Stimulation after Drug Infusion ? Ablation of Separate Mechanism of Tachycardia ? A Fib/PV Isolation Ablation ? A Fib Additional linear/focal ablation I RA/LA ? Ultrasound Site Rite Vascular Access ? Intracardiac Echo ? Ablation of Separate Mechanism of Tachycardia Auxiliary Device Intracardiac Echo Used: Yes Procedure Detail Estimated Blood Loss: < 50 ml Specimen Collected: None Level of Sedation Achieved: See Anesthesia Note Total Flouro Time: 2.2 HAND BRAILLE TRANSCRIBER Total Flouro Dose: 10 mGy Transseptal Mean LA Pressure: 18 mmHg Staff Name Role Scotty Mata Diesel Instructor Crystal Douglas RN Nurse Luz Borjas CAUSTIC ROOM OPERATOR Monitor Dino Rose EPT Scrub SolaresBilly chong CVT Scrub Medications Ordered and Administered Start Time Stop Time Medication Dose Units Route Ordered By Given By 08:47 0.25% Bupivicaine 20 mL Subcut MD Scotty Bustamante MD 08:47 1% Lidocaine Hydrochloride 20 mL Subcut MD Toro Bustamante MD 09:00 Heparin 02477 Units IV MD Crystal Bustamante RN 09:55 (New Bag) Isoproterenol (Isuprel) 5 mcg per min IV MD Crystal Pearce RN 10:10 (Existing) Isuprel 0 mcg per min IV MD Scotty Bustamante MD 10:33 (Existing) Isuprel 5 mcg per min IV MD Maira Bustamante RN 10:41 (New Bag) Isoproterenol (Isuprel) 5 mcg per min IV MD Crystal Pearce RN 10:47 (Existing) Isuprel 0 mcg per min IV MD Maira Bustamante RN 10:53 Protamine 50 Mg IV MD Crystal Bustamante RN The medications listed above were verbally ordered by me and read back tome as documented above. Refer to the hemodynamic procedure log report for additional casedetails. electronically signed on 04/11/2025 3:01:40 PM with status of Final Scotty Mata MD Diesel Instructor [facility] [address] [place] [phone] (p) [phone](f) Authorizing ProviderResult TypeResult StatusJay Deep Rose MDCV IMAGINGEdited Result - Final * EXTRA TUBE GOLD/SST (04/11/2025 7:12 AM HOSPICE RN)Specimen (Source)Anatomical Location / LateralityCollection Method / VolumeCollection TimeReceived Time BloodBLOOD SPECIMEN / UnknownExtra Tube / Skjnrfu7904/11/2025 7:12 AM HOSPICE RN 04/11/2025 7:31 AM HOSPICE RN Narrative Authorizing ProviderResult TypeResult StatusDoctor UnknownLABORATORYFinal Result Performing OrganizationAddressCity/State/ZIP CodePhone Number [facility] [address] [address], * (ABNORMAL) Basic Metabolic Panel (04/11/2025 7:12 AM HOSPICE RN)ComponentValueRef RangeTest MethodAnalysis TimePerformed AtPathologist SdtovbredYVVBKH186310 - 145 mmol/L106/11/2024 7:59 AM [facility] LAB[facility] POTASSIUM4.23.5 - 5.1 mmol/L106/11/2024 7:59 AM [facility]EN[facility]AL DGPEUWPXKKEDIMUFNZ84858 - 107 mmol/L106/11/2024 7:59 AM [facility]-CENTRAL LABORATORYCO2,AIIWR1486 - 29 mmol/L106/11/2024 7:59 AM [facility] LABORATORYANION BPW516 - 18106/11/2024 7:59 AM [facility] OHZLKFIHXZOAPAKWY470(H)70 - 99 mg/dL04/11/2025 7:59 AM [facility] LABORATORYCALCIUM 9.58.8 - 10.4 mg/dL04/11/2025 7:59 AM [facility] LABORATORYComment: Reference ranges for this test were updated on 04/04/2024 to reflect our healthy population more accurately. Reference range changes are not retroactively applied to results, but previous results using the same methodology can be interpreted in the context of the new reference range. OGU791 - 23 mg/dL04/11/2025 7:59 AM [facility] LABORATORYCREATININE1.00(H)0.50 - 0.90 mg/dL04/11/2025 7:59 AM [facility] LABORATORYBUN/CREAT AUMGH3572 - 7:59 AM HOSPICE RN [facility] JQZDWNNJZSuBDZ64(L)>90 mL/min/1.18o33204/11/2025 7:59 AM [facility] LABORATORYComment:As of 08/12/2021, eGFR is calculated by the CKD-EPI creatinine equation without race adjustment. ??eGFR can be influenced by muscle mass, exercise, and diet. ??The reported eGFR is an estimation onlyand is only applicable if the renal function is stable. Specimen (Source)Anatomical Location / LateralityCollection Method / Volume Collection TimeReceived TimeBloodBLOOD SPECIMEN / UnknownVenipuncture / Unknown 04/11/2025 7:12 AM CST04/11/2025 7:29 AM HOSPICE RN Narrative Authorizing ProviderResult TypeResult StatusJay Geovani Rose MDCHEMISTRYFinal ResultPerforming OrganizationAddressCity/State/ZIP CodePhone Number [facility] [address] * SCAN-CARDIAC STRIP (04/11/2025 12:00 AM HOSPICE RN) Narrative 04/11/2025 12:00 AM HOSPICE RN Ordered by an unspecified provider. Authorizing ProviderResult TypeResult StatusOther Clinical StaffOTHERFinal Result * SDNA-FIT EXTERNAL (COLOGUARD) (08/14/2024 10:10 AM CDT)ComponentValueRef Range Test MethodAnalysis TimePerformed AtPathologist SignatureNONINV COLON CA DNA+OCC BLD SCRN STL-IRIAyrzdyepBbtilrtn84/20/2025 12:38 PM CDTEXTwin Willows [facility] (CLIA #:[id number])Comment: NEGATIVE TEST RESULT. A negative Cologuard result indicates a low likelihood that a colorectal cancer (CRC) or advanced adenoma (adenomatous polyps with more advanced pre-malignant features) ??is present. The chance that a person with a negative Cologuard test has a colorectal cancer is less than 1in 1500 (negative predictive value >99.9%) or has an advanced adenoma is less than 5.3% (negative predictive value 94.7%). These data are based on a prospective cross-sectional study of 10,000individuals at average risk for colorectal cancer who were screened with both Cologuard and colonoscopy. (Elizabet Saavedra et al, N Engl J Med 2014;370(14):8610-7813) The normal value (reference range) for this assay is negative. COLOGUARD RE-SCREENING RECOMMENDATION: Periodic colorectal cancer screening is an important part ofpreventive healthcare for asymptomatic individuals at average risk for colorectal cancer. ??Following a negative Cologuard result, the [place] [employer] Society and U.S. Multi-Society Task Force screening guidelines recommend a Cologuard re-screening interval of 3 years. References: [place] [employer] Guideline for Colorectal Cancer Screening: https://www.cancer.or g/cancer/yiuhi-yzsuns-zjbnme/dwgggbhef-zkgrrvvbs-dlvlhzk/acs-recommendations.htm l.; Leonides PERRY, Ami ROA, Toya PandyaK, Colorectal Cancer Screening: Recommendations for Physicians and Patients from the U.S. Multi-Society Task Force on Colorectal Cancer Screening , Am J Gastroenterology 2017; 112:2164-6890. TEST DESCRIPTION: Composite algorithmic analysis of stool DNA-biomarkers with hemoglobin immunoassay. ?? Quantitative values of individual biomarkers are not reportable and are not associated with individual biomarker result reference ranges. Cologuard is intended for colorectal cancer screening ofadults of either sex, 45 years or older, [...] (Elizabet Santana al, N Engl J Med 2014;370(14):9217-6755.) Cologuard may produce a false negative or false positive result (no colorectal cancer or precancerous polyp present at colonoscopy follow up). A negative Cologuard test result does not guarantee the absence of CRC or advanced adenoma (pre-cancer). The current Cologuard screening interval is every 3 years. ([place] [employer] Society and U.S. Multi-Society Task Force). Cologuard performance data in a 10,000 patient pivotal study using colonoscopy as the reference method can be accessed at the following location: www.[employer]/results. Additional description of the Cologuard test process, warnings and precautions can be found at www.[employer].com. Specimen (Source)Anatomical Location / LateralityCollection Method / Volume Collection TimeReceived TimeStool specimen (specimen) (Rectum)08/14/2024 10:10 AM CDT08/15/2024 7:19 AM CDT Narrative Authorizing ProviderResult TypeResult StatusSherri Zuleika Zamora DOURINEFinal ResultPerforming OrganizationAddressCity/State/ZIP CodePhone Number [facility] (CLIA #:[id number]) [address] [place] [address], * XR MAMMO ADRIANA BILAT SCREEN (08/01/2024 10:58 AM HOSPICE RN)Anatomical Region LateralityModalityBREASTS, Breast Left, Breast RightBilateralMammography Specimen (Source)Anatomical Location / LateralityCollection Method / Volume Collection TimeReceived Time Impressions 08/01/2024 3:31 PM HOSPICE RN There is no radiographic evidence for malignancy. Recommend annual mammograms. MAMMOGRAM ASSESSMENT: ??ACR 1 Negative PATIENTS: You will also receive a letter with your examination results in an easy to read format. ??If you have questions about your results, please contact your referring provider. Narrative 08/01/2024 3:31 PM HOSPICE RN For Patients: As a result of the 21st Century Cures Act, medical imaging exams and procedure reports are released immediately into your electronic medical record. You may view this report before your referring provider. If you have questions, please contact your health care provider. XR MAMMO ADRIANA BILAT SCREEN [[id number]] CLINICAL HISTORY: ??This is an asymptomatic 64 y.o. patient. INDICATION FOR EXAM: Mammogram Screening. TECHNIQUE: CC and MLO views were obtained. ??This study was evaluated with the assistance of Computer-Aided Detection. Breast Tomosynthesis was used in interpretation. COMPARISON FILM: Yes 05/13/23 [facility] 05/13/22 [facility] FINDINGS: ??There are scattered areas of fibroglandular density. There are no dominant masses, suspicious micro calcifications or areas of architectural distortion. Authorizing ProviderResult TypeResult StatusSherri Zuleika Oetken DOMAMMOFinal Result * LIPID PANEL W REFLEX MEASURED LDL (01/26/2024 12:17 PM CDT)ComponentValueRef RangeTest MethodAnalysis TimePerformed AtPathologist Signature CHOLESTEROL,NLGLO236711 - 199 mg/dL01/26/2024 7:26 PM [facility] LAB[facility]ORY-CENTRAL LABORATORYComment: Cholesterol, Total Reference Ranges Desirable <200 mg/dL Borderline 200-239 mg/dL High >=240 mg/dL ZNVMFMZONEVXE404<150 mg/dL01/26/2024 7:26 PM [facility] LAB[facility]-CENTRAL LABORATORYHDL BQPANGVZFHH64>40 mg/dL01/26/2024 7:26 PM [facility]-CENTRAL LABORATORYNON-HDL BMLWAVXMLYR74<145 mg/dl01/26/2024 7:26 PM [facility] LAB[facility]-CENTRAL LABORATORYCHOL/HDL RATIO2.47<4.5008 7:26 PM [facility] LAB[facility]-CENTRAL LABORATORYLDL ATDESFJTXBW12<=130 mg/dL01/26/2024 7:26 PM [facility] LABOR[facility]-CENTRAL LABORATORYVLDL JUYGLGSTDXN34<=30 mg/dL01/26/2024 7:26 PM [facility] LABOR[facility]-CENTRAL LABORATORYPROVIDER ORDERED OODVLSPQXIXQ23/28/2024 7:26 PM [facility] LAB[facility]-CENTRAL LABORATORYSpecimen (Source)Anatomical Location / Laterality Collection Method / VolumeCollection TimeReceived TimeBloodBLOOD SPECIMEN / UnknownVenipuncture / Jaevnwn0501/26/2024 12:17 PM CDT01/26/2024 12:18 PM CDT Narrative Authorizing ProviderResult TypeResult StatusKia Zamora DOCHEMISTRYFinal ResultPerforming OrganizationAddRoxborough Memorial Hospitalty/State/ZIP CodePhone Number [facility] LAB[facility] [address] [place] [address], * ANTI HCV (12/30/2018 1:34 PM CDT)ComponentValueRef RangeTest MethodAnalysis TimePerformed AtPathologist SignatureHEPATITIS C ANTIBODYNon-Reactive Non-Pwrphjyl36/02/2019 8:22 PM CDSCOTT [facility]ITALCENTRAL [facility] Comment:Antibodies to HCV not detected; does not exclude the possibility of exposure to HCV.Specimen (Source)Anatomical Location / LateralityCollection Method / VolumeCollection TimeReceived TimeBloodBLOOD SPECIMEN / Unknown Venipuncture / Atkovyl9112/30/2018 1:34 PM CDT12/30/2018 1:34 PM CDT Narrative Authorizing ProviderResult TypeResult StatusKia Zamora DOSEND OUTSFinal ResultPerforming OrganizationAddressty/[facility]/ZIP CodePhone Number [facility]AL LAB[facility]ATORY [address] [place] [address], * CLERK ANALYST THIN PREP PAP SCREEN (07/23/2005 5:42 PM HOSPICE RN)ComponentValueRef RangeTest MethodAnalysis TimePerformed AtPathologist SignatureCYTOLOGY??CYTOPATHOLOGY REPORT ??[facility] ?? Status: Final Report ? [id number] ?? CLINICAL INFORMATION ?LMP ? : 07/01/05 ?Previous Pap Date ? : MANY YEARS ?Previous PAP Dx ? : None ?Previous [place]/bx date : None ?Previous Colposcopy/Bx: None ?Hormone Usage ? : None ?Menstrual Status ?: Irregular Periods ?Appearance of Cervix ??: NOT VISUALIZED,OBTAINED BLINDLY ?[place]/Bx done today ?: No ?HPV Request ? : Reflex HPV test if PAP Dx ASCUS ?? SPECIMEN SOURCE ?: Cervical/vaginal ThinPrep Vial, screening ?? SPECIMEN ADEQUACY ?: Satisfactory for evaluation No endocervical ?component seen. ? INTERPRETATION/RESULT: ?Negative for intraepithelial lesion or malignancy. ? Cytology 1st Screener : ??taj ?? Signed by: ? taj ?? NOTE: The Pap test is a screening technique, not a diagnostic ?? procedure. It is used primarily to screen for squamous cancers and ?? precursor lesions. Published studies have shown that it is subject to ?? both false negative and false positive results. The pap test should ?? not be used as the sole means to diagnose or exclude pre-malignant and ?? malignant lesions. ?? COLLECTED: 07/23/05 ?? ACCESSIONED: 07/23/05 ?? SIGNED: 07/31/05[facility] HEALTHpecimen (Source)Anatomical Location / LateralityCollection Method / VolumeCollection TimeReceived TimeCervixSPECIMEN FROM UTERINE CERVIX / Ald[place]ohp0007/23/2005 5:42 PM CST07/23/2005 5:39 PM HOSPICE RN Narrative Authorizing ProviderResult TypeResult StatusHarold L Clark MDPATHOLOGY/CYTOLOGY Final ResultPerforming OrganizationAddressCity/State/ZIP CodePhone Number [facility] INTERNAL ZIP [address] [address] from Last 3 Months or Most Recently Relevant to Health Maintenance Insurance Advance Directives TypeDate RecordedPatient RepresentativeExplanationHealthcare Directive01/05/2021 [facility] , 01/05/2021 * Full Code (Latest Code Status on File) Date ActivatedDate GrfpnlgzqqjLdkdziux46/12/2025 10:58 AM04/12/2025 3:49 PM QuestionAnswerCommentsCode Status Discussion:* Other * Full Code Date ActivatedDate InactivatedComments02/15/2025 10:36 AM02/17/2025 5:16 PM QuestionAnswerCommentsCode Status Discussion:* Reviewed Preferences * Full Code Date ActivatedDate InactivatedComments12/06/2022 1:54 AM12/08/2022 8:57 PMQuestion AnswerCommentsCode Status Discussion:* Reviewed Preferences * Full Code Date ActivatedDate InactivatedComments09/16/2022 12:39 PM09/16/2022 4:06 PM QuestionAnswerCommentsCode Status Discussion:* Reviewed Preferences * Full Code Date ActivatedDate InactivatedComments09/09/2022 4:03 PM09/10/2022 12:10 PM QuestionAnswerCommentsCode Status Discussion:* Other (specify in comments): Care Teams Team MemberRelationshipSpecialtyStart [place] [address] [place] [address] PCP - GeneralFamoly Practice02/15/25
--- OUTSIDE RECORDS SUMMARY | 2025-05-28 07:50 | XMS_ITS | Clinical Summary ---
Author Organization [facility] Address [address] [place] [address]. [place] [address] Care Team Providers Care Nurse Anesthesia Program Director Name Role Phone [employer], [facility] Primary Care Provide r Allergies No known active allergies Medications MedicationSigDispense QuantityRefillsLast FilledStart DateEnd DateStatus TRAZODONE HCL 20 mg At Bedtime.Active CITALOPRAM HYDROBROMIDE PO Take 20 mg by mouth every evening.Active oxyCODONE-acetaminophen (PERCOCET) 5-325 MG per tablet Take 1-2 tablets by mouth every 4 hours as needed for pain. 30 tablet ctive ibuprofen (ADVIL,MOTRIN) 600 MG tablet Take 1 tablet by mouth every 6 hours as needed for pain. 30 tablet ctive methocarbamol (ROBAXIN) 500 MG tablet Take 2 tablets by mouth 3 times daily as needed. 30 tablet ctive Social History Tobacco UseTypesPacks/DayYears UsedDateSmoking Tobacco: Never Assessed CommentsNoSex and Gender InformationValueDate RecordedSex Assigned at BirthNot on fileLegal BiySejrkb15/04/2012 3:41 AM CSTGender IdentityNot on fileSexual OrientationNot on file Last Filed Vital Signs Vital SignReadingTime TakenCommentsBlood Vgrhuhkt831/8408/26/2024 5:25 PM CDT Txubq541408/26/2024 5:25 PM XUIXncqkkavdyb58.8 ??C (98.2 ??F)08/26/2024 2:19 PM CDTRespiratory Gjdw157208/26/2024 5:25 PM CDTOxygen Lhedskoygz47%08/26/2024 5:25 PM CDTInhaled Oxygen Concentration--Rkcksr612.7 kg (275 lb)04/17/2012 1:49 PM VOJJkuqcg823.3 cm (5' 9)04/17/2012 1:49 PM CSTBody Mass Index40.6104/17/2012 1:49 PM PHYSICIAN REPRESENTATIVE Plan of Treatment Health MaintenanceDue DateLast DoneCommentsADVANCE CARE TIHNSFJQ23/26/1961ANNUAL REVIEW OF HM MVKBTA62 1960T TVKMIOZXRKPO03/26/1961IABETES SCREENING 1960FIT1960FLEX SIG1960YEARLY PREVENTIVE VISIT1963 WQJVXGHIISO84/26/1971HIV PYCGXPQIR69/26/3513KPTCR76/26/5359BXC6207/23/2008 07/23/2005PHQ-2 (once per calendar year)2024OVID-19 VACCINE ( season), 04/12/2023, 03/18/2022, Additional history exists INFLUENZA VACCINE (#1)/, 03/02/2023, 03/18/2022, Additional history existsMAMMO LUCPYKWZW64, 08/01/2024, 05/13/2023, Additional history existsCOLORECTAL CANCER JHDSHZOWW71/17/2028sDNA (Cologuard) , 08/14/2024, 08/14/2024DTAP/TDAP/TD VACCINE (3 - Td or Tdap)/, 06/02/2012RSV VACCINE (1 - 1-dose 75+ series) 2035HEPATITIS C JKCVOMLKNLqpnqlxzk20/02/2019ZOSTER VACCINECompleted 07/12/2020, 05/09/2020PNEUMOCOCCAL VACCINE 50+ HJDCPPkyeiitjn87/28/2024HPV VACCINE (No Doses Required)CompletedMENINGITIS VACCINEAged OutNo longer eligible based on patient's age to complete this topic Insurance Care Teams Team MemberRelationshipSpecialtyStart DateEnd [address] [phone] PCP - General08/26/24
--- OUTSIDE RECORDS SUMMARY | 2025-05-28 07:50 | XMS_ITS | Clinical Summary ---
Author Organization [facility] Address [address] [place] [address] Care Team Providers Care Extractions Technologist Name Role Phone Kia Zamora DO Primary Care Provider Bruna cuenca Source Comments You are receiving this document as you are listed as the primary care provider,follow-up provider, or the patient has been referred to you for consultation.This is in compliance with the Medicare andMedicaid EHR Incentive Program,which states Providers who transition their patient to another setting of careor provider of care or refers their patient to another provider of care shouldprovide summary care record for each transition of care or referral. [facility] Allergies Active AllergyReactionsCriticalityNoted McruLhsovofcMiqpjqnmzGkleqja11/17/2016 Medications MedicationSigDispense QuantityRefillsLast FilledStart DateEnd DateStatus cholecalciferol (VITAMIN D3) 1000 UNITS tablet Take 1,000 Units by mouth daily.Active aspirin 81 MG chewable tablet Take 1 Tab by mouth daily. 100 Tab Active Active Problems ProblemNoted DateDiagnosed DateParoxysmal atrial mxhdiaitxxus13/17/2016 Overview (04/16/2016): Normal echocardiogram in 2016. Normal Lexiscan nuclear perfusion scan in 2016. Atrial fibrillation with RVR02/01/20166620Ekazxdzuimzxqs06/03/2016 Social History Tobacco UseTypesPacks/DayYears UsedDateSmoking Tobacco: NeverCommentsNo Sex and Gender InformationValueDate RecordedSex Assigned at BirthNot on file Legal KkpCvhdar48/10/2012 7:30 AM CDTGender IdentityNot on fileSexual OrientationNot on file Last Filed Vital Signs Vital SignReadingTime TakenCommentsBlood Lcdjcvdp132/7811 1:17 PM ZIG ZAG STITCHER Wycaa7886 1:17 PM MFJVglcgfddevg67 ??C (98.6 ??F)02/04/2016 11:10 AM CDT Respiratory Clol4953 11:10 AM CDTOxygen Asjgtnyyos87%02/04/2016 11:10 AM CDTInhaled Oxygen Concentration--Bjuxgf093.9 kg (260 lb)04/16/2016 1:17 PM ZIG ZAG STITCHER Height--Body Mass Index-- Plan of Treatment Health MaintenanceDue DateLast DoneCommentsCervical Cancer Screening Due 1960olon Cancer Screening Plan Due1960Hep C Screening (Preventive Services)1960 6078Ybatbkbkz64/27/1961HIV Screening (Preventive Services) 1976Adult Preventive Visit07/26/19786520Epbzwqeygwv45/26/2006Pneumococcal Vaccine 50+ Yrs (1 of 1 - PCV)2010Zoster/Shingles Vaccine (1 of 2) 2010DTaP/Tdap/Td Vaccine (2 - Tdap)COVID-19 Vaccine (1 - 2024- season)2025Influenza Vaccine (#1)2025RSV Vaccine (1 - 1- dose 75+ series)2035HepA VaccineAged OutNo longer eligible based on patient's age to complete this topicHepB VaccineAged OutNo longer eligible based on patient's age to complete this topicHib VaccineAged OutNo longer eligible based on patient's age to complete this topicIPV (Polio) VaccineAged OutNo longer eligible based on patient's age to complete this topicMCV4 VaccineAged OutNo longer eligible based on patient's age to complete this topicMeningococcal B VaccineAged OutNo longer eligible based on patient's age to complete this topic Insurance Advance Directives * Full Code (Latest Code Status on File) Date ActivatedDate InactivatedComments02/01/2016 5:14 PM02/06/2016 2:18 PM Care Teams Team MemberRelationshipSpecialtyStart DateEnd Date Kia Zamora DO PCP - GeneralFamily Practice02/01/16
[2025-05-28 07:51] VITALS: BP 140/79; PULSE 76; RESP 18; TEMP 36.6; O2SAT 93; BMI 49.9
--- NOTE | 2025-05-28 08:18 | ED.GENADULT ---
HPI - General Adult General Date Seen: 05/28/25 Chief complaint: Epistaxis/Nosebleed Stated complaint: Nosebleed Time Seen by Provider: 05/28/25 08:09 History of Present Illness HPI narrative: Patient is a 64-year-old woman who developed a nosebleed a couple of days ago, she was in [place] at the times she was taking care of at [place], had a presumably rhino rocket placed. This morning she when she woke up she said it was bleeding again, she said she was ?vomiting clots. It has now stopped. That was about an hour and half ago. She said it bled for about 20 minutes, she called the number on her paperwork and they told her to come in and be seen. She is on Eliquis secondary to atrial fibrillation, she held yesterday, was told to hold it today and have packing removed tomorrow. That is not arranged yet. She also notes that she has discomfort from the packing and has had some nausea. Related Data Home Medications ?Medication ?Instructions ?Recorded ?Confirmed apixaban 5 mg tablet (Eliquis) 5 mg PO BID 10/30/22 05/28/25 atorvastatin 20 mg tablet 20 mg PO DAILY 10/30/22 05/28/25 pantoprazole 40 mg tablet,delayed 40 mg PO DAILY 10/30/22 05/28/25 release sotalol 80 mg tablet 80 mg PO BID 10/30/22 05/28/25 spironolactone 25 mg tablet 12.5 mg PO DAILY 12/02/22 05/28/25 amiodarone 200 mg tablet 200 mg PO DAILY 05/28/25 05/28/25 metoprolol succinate 25 mg 12.5 mg PO DAILY 05/28/25 05/28/25 tablet,extended release 24 hr Previous Rx's ?Medication ?Instructions ?Recorded diltiazem HCl 120 mg capsule,24 120 mg PO DAILY #30 caps 02/14/25 hr,extended release furosemide 20 mg tablet 20 mg PO DAILY #3 tabs 02/14/25 Allergies Allergy/AdvReac Type Severity Reaction Status Date / Time Latex, Natural Rubber Allergy Unknown Verified 05/28/25 07:59 PFSH PFS Social History Smoking Status: Never smoker Second hand tobacco smoke exposure: No How often do you have a drink containing alcohol: never How often do you have six or more drinks on one occasion: Never AUDIT-C Alcohol total score: 0 Non-prescribed substance use: denies use Exam Narrative: Exam Narrative: Vital signs reviewed In general, alert, well-appearing woman. ENT: At this time no active bleeding, balloon is in place in the right nares, throat is normal. Const: Vital Signs, click to edit/add: Vital Signs - 24 hr 05/28/25 07:51 Temperature 97.9 F Pulse Rate [Right Pulse Oximeter] 76 Respiratory Rate 18 Blood Pressure [Ri ght Forearm] 140/79 H Pulse Oximetry 93 Oxygen Delivery Me thod Room Air Course Course ED Course: Discussed with her that I would not recommend disrupting the balloon at this point. I would recommend that she leave it in for a total of 5 days, discussed that she could follow up there are ENT clinic if needed otherwise through [facility]. Would recommend that she hold her Eliquis today and tomorrow given that she still having some trickling this morning. Return for heavy bleeding that does not subside within 30 minutes. I gave her Tylenol and Zofran here for pain and nausea. Vital Signs Vital signs: Initial Vital Signs Temperature 97.9 F 05/28/25 07:51 Temperature Source Temporal Artery Scan 05/28/25 07:51 Pulse Rate 76 05/28/25 07:51 Respiratory Rate 18 05/28/25 07:51 Blood Pressure 140/79 H 05/28/25 07:51 Blood Pressure Mean 99 05/28/25 07:51 Blood Pressure Position Sitting 05/28/25 07:51 Pulse Oximetry 93 05/28/25 07:51 Oxygen Delivery Method Room Air 05/28/25 07:51 Vital Signs Temperature 97.9 F 05/28/25 07:51 Pulse Rate 76 05/28/25 07:51 Respiratory Rate 18 05/28/25 07:51 Blood Pressure 140/79 H 05/28/25 07:51 Pulse Oximetry 93 05/28/25 07:51 Oxygen Delivery Method Room Air 05/28/25 07:51 Temperature 97.9 F 05/28/25 07:51 Pulse Rate 76 05/28/25 07:51 Respiratory Rate 18 05/28/25 07:51 Blood Pressure 140/79 H 05/28/25 07:51 Pulse Oximetry 93 05/28/25 07:51 Oxygen Delivery Method Room Air 05/28/25 07:51 Discharge Plan Discharge Clinical Impression: Epistaxis Patient Disposition: Home, Self-Care Condition: Stable Instructions: Nosebleed (ED) Additional Instructions: As discussed, I would recommend holding your Eliquis today and tomorrow. Balloon can be removed ideally on Wednesday. You can follow-up through the [facility], or you can call our ENT, Dr. Mchugh in, at [phone] and he should be able to fit you in to remove your packing. If you have heavy bleeding that lasts longer than 30 minutes, return to the ER at any time. Prescriptions: No Action spironolactone 25 mg tablet 12.5 mg PO DAILY furosemide 20 mg tablet 20 mg PO DAILY Qty: 3 0RF diltiazem HCl 120 mg capsule,extended release 24hr 120 mg PO DAILY Qty: 30 0RF amiodarone 200 mg tablet 200 mg PO DAILY metoprolol succinate 25 mg tablet extended release 24 hr 12.5 mg PO DAILY atorvastatin 20 mg tablet 20 mg PO DAILY sotalol 80 mg tablet 80 mg PO BID pantoprazole 40 mg tablet,delayed release (DR/EC) 40 mg PO DAILY Eliquis 5 mg tablet 5 mg PO BID Patient Comments: hold for past 2 days due to nosebleed Follow Up/Referrals: Kia Zamora DO [Primary Care Provider, Family Practice] Stand Alone Forms: [employer] Info Instructions
[2025-05-28] MEDS: ONDANSETRON ODT 4 MG TAB PO (08:31)
[2025-05-28] MEDS: ACETAMINOPHEN 500 MG TABLET 1000 MG PO (08:31)
== END 2025-05-28 08:33 | disposition home or self-care (01) ==
LOC: ED 08:19
PROVIDERS: Emergency Provider Emergency Medicine; PCP Family Medicine
DX: R04.0 Epistaxis (principal)
CPT/HCPCS: 99282; 99283; A9270

== ENCOUNTER 2025-05-30 10:33 | Emergency (ER) | payer BC, SELFPAY ==
--- OUTSIDE RECORDS SUMMARY | 2025-05-30 10:35 | XMS_ITS | Clinical Summary ---
Author Organization [facility] Address [address] [place] [address] Care Team Providers Care Hatchery Helper Name Role Phone Kia Zamora DO Primary [...] for each transition of care or referral. [facility] Allergies Active AllergyReactionsCriticalityNoted TyufWfkxjnrcDxbmgapkbMzvsczk73/17/2016 Medications MedicationSigDispense QuantityRefillsLast FilledStart DateEnd DateStatus cholecalciferol (VITAMIN D3) 1000 UNITS tablet Take 1,000 Units by mouth daily.Active aspirin 81 MG chewable tablet Take 1 Tab by mouth daily. 100 Tab Active Active Problems ProblemNoted DateDiagnosed DateParoxysmal atrial rpcfkkovirrl12/17/2016 Overview (04/16/2016): Normal echocardiogram in 2016. Normal Lexiscan nuclear perfusion scan in 2016. Atrial fibrillation with RVR02/01/20165999Lwpwhlfmykyawy02/03/2016 Social History Tobacco UseTypesPacks/DayYears UsedDateSmoking Tobacco: NeverCommentsNo Sex and Gender InformationValueDate RecordedSex Assigned at BirthNot on file Legal JxwHfrizk20/10/2012 7:30 AM CDTGender IdentityNot on fileSexual OrientationNot on file Last Filed Vital Signs Vital SignReadingTime TakenCommentsBlood Cvvewvvt160/7811 1:17 PM DOCK WORKER Npqsw7157 1:17 PM IEFAzqoufmemcz43 ??C (98.6 ??F)02/04/2016 11:10 AM CDT Respiratory Epap2181 11:10 AM CDTOxygen Jvptakzptm52%02/04/2016 11:10 AM CDTInhaled Oxygen Concentration--Tonkqv289.9 kg (260 lb)04/16/2016 1:17 PM DOCK WORKER Height--Body Mass Index-- Plan of Treatment Health MaintenanceDue DateLast DoneCommentsCervical Cancer Screening Due 1960olon Cancer Screening Plan Due1960Hep C Screening (Preventive Services)1960 3059Rkmbgqczu31/27/1961HIV Screening (Preventive Services) 1976Adult Preventive Visit07/26/19782682Fdsrokpgedw68/26/2006Pneumococcal Vaccine 50+ Yrs (1 of 1 - [...]
--- OUTSIDE RECORDS SUMMARY | 2025-05-30 10:35 | XMS_ITS | Clinical Summary ---
Author Organization [employer] Address [address] [place] [address] Care Team Providers Care Chief Inspector Name Role Phone Kia Zamora Primary Care Provider Allergies Active AllergyReactionsCriticalityNoted VyzvElwdizfaXqjmgWgboo25/12/2017Unlisted Allergen (Include Detail In Comments)Other - Describe In Comment Field01/22/2015 Runny nose, itchy eyes-seasonal allergies HufbczmlmIratopy82/16/2014 Surges of hyperness Medications MedicationSigDispense QuantityRefillsLast FilledStart [...] Active Problems ProblemNoted DateDiagnosed DateAtrial fibrillation and nhpwdfc8004/11/2025Morbid obesity, unspecified obesity type07/17/2024Primary osteoarthritis of right knee 2Chronic systolic congestive heart lviwmsa65/25/2022Chest pain 01/24/20207337Ntibmkjpvpbr33/20/2020CKD (chronic kidney disease), stage III 07/24/20195309Sgfeymenkhh71/03/2019Essential ksmbosohzqph77/02/2019Dyslipidemia 12/30/2018Dilated cardiomyopathy (HC) tachy mediated history of08/03/2018 Paroxysmal atrial trbkvvsggmfo17/03/2016 Overview (09/22/2021): CHADVASC score 1 - aspirin recommended Normal echocardiogram in 2016. Normal Lexiscan nuclear perfusion scan in 2016. SCOTT (generalized anxiety disorder)06/22/2014Morbid obesity with BMI of 50.0- 59.9, adult09/20/2012OSA 02/25/2012 AHI- 13, REM 311Depression, major, in ljfnkuepu11/20/2012 Overview (06/22/2014): Celexa Klonopin Abilify 2mg -- trying other meds first Wellbutrin 150mg did not tolerate Effexor low dose jolts of anxiety Insomnia, omfitlzgnel51/11/2012typical chest pain08/07/2010 Overview (08/07/2010): [place] ER visit 0n 07/23/2010. STRESS ECHO: 1. Negative for myocardial ischemia. 2.EF 65% 3. Left Ventricular End systolic volume decreased with stress Resolved Problems ProblemNoted DateDiagnosed DateResolved DateElevated /26/2020 06/16/20213300Ifevqrqsbpwosb85/02/201606/02/9151Bwtlfafnloc65 Wftqjfnfb44Insomnia, quvglogkojw69Adjustment disorder with zbinhfy63Insomnia, mmcrwfnrard87/11/2012 02/09/2012djustment disorder with mixed anxiety and depressed mood10/10/2009 08/18/2012CELLULITIS of L labia /28/EXAMINATION, PREOPERATIVE NECExcessive or frequent eqtbncqxqhmk64/08/2000 06/16/2021Lump or mass in stiygu88ough01/21/2006 Encounters DateTypeDepartmentCare AekpMkynvvowudv10/29/2025Nurse Triage [facility] [address] [address] [facility] [address] Kia Zamora, Nose Problem (Nosebleed )05/25/2025 1:18 PM ELECTRIC SIGN ASSEMBLER - 05/25/2025 4:11 PM ELECTRIC SIGN ASSEMBLER Emergency [facility] Emergency Department [address] [place] [address] Claude Cosme MD Epistaxis (Primary Dx) Discharge Disposition: Home Self Care05/25/20253988Dwchfu67/19/2025Telephone [facility] [address] [place] [phone] Ottoniel Rose MD Post Pqhmktruz08/04/2025 8:15 AM CSTAnesthesia Event [facility] [address] [place] [address] Levar Sanz MD 04/11/2025 6:39 AM ELECTRIC SIGN ASSEMBLER - 04/12/2025 1:30 PM CSTHospital Encounter [facility] [address] [place] [address] Scotty Mata MD Thompson, Kelly Ann, CRNA Taylor, Good Whitlock MD Atrial fibrillation and flutter (HC) (Primary Dx); Persistent atrial fibrillation (HC); Heart failure, unspecified HF chronicity, unspecified heart failure type (HC); Elevated coronary artery calcium score Discharge Disposition: Home Self Care04/11/20252144Szqnqa71/11/2025Telephone [facility] [address] [facility] [address] [place] [address] Eboni Washington, RN Mdquqsvlq94/22/2025 1:00 PM CDTNurse/Clinic Staff Only [facility] [id number] [place] [address] Immunization/Frkbxogrg81/22/2025Travelfrom Last 3 Months Immunizations ImmunizationAdministration DatesNext DueCOVID-19 VACCINE SPIKEVAX (MODERNA 50MCG/0.5ML) 12YO+ PFS03/21/2025,03/28/2024,3COVID-19 vaccine (Moderna 50mcg/0.5mL) 12YO+ BIVALENT PF, MDV12COVID-19 vaccine (Pfizer-BioNTech 30mcg/0.3mL) PF, MDV106/26/2020,09/30/2020,09/11/2020INFLUENZA, IIV3 PF (AGE >= 6 MO)02/21/2025,03/28/2024Influenza Virus, Hjndgxriiml80/27/2017Influenza, IIV3 (Age >=3 years)06/02/2012Influenza, JJV806,03/18/2022,05/19/2021, 03/01/2020,07/19/2019,02/24/2018Pneumococcal Conj 20-valent (Prevnar 20) 01/26/2024Tdap09/22/2021,06/02/2012Zoster (Shingrix-RZV, recombinant)07/12/2020, 05/09/2020 Family History Medical HistoryRelationNameCommentsUnknownFatherUnknownMotherGeneticOthersister breast ca diag at 41 years old.?Dad dm now .~No?hx of CAD or HTN or colon cancer.Sputcp-dcucjzDdqvjlXrjazd-asggmvmWo Family HistoryRelationName StatusCommentsFatherDeceasedMotherDeceasedOtherSister Social History Tobacco UseTypesPacks/DayYears UsedDateSmoking Tobacco: NeverPassive Smoke Exposure: NeverSmokeless Tobacco: Never Tobacco Cessation:Counseling Given: Not Answered Alcohol UseStandard Drinks/WeekCommentsNo0 (1 standard drink = 0.6 oz pure alcohol)PHQ-2AnswerDate RecordedPHQ-2 TOTAL THGUP121Social Connections AnswerDate RecordedDo you often feel lonely or isolated from those around you?0 02/21/2025lcohol UseAnswerDate RecordedHow often do you have a drink containing alcohol?verage Number of DrinksNot on file02/21/2025Frequency of Binge DrinkingNot on file02/21/2025Financial Resource StrainAnswerDate Recorded Difficulty of Paying Living Vqqulvkf202/24/2025Difficulty of Paying Living ExpensesNot on file02/21/2025Food InsecurityAnswerDate [...] Recorded Sex Assigned at BirthNot on fileLegal GzaTovsrd77/14/2013 5:25 AM CSTGender IdentityNot on fileSexual OrientationNot on file Obstetrics History GravidaParaTermPretermABIABSABEctopicMultipleLivingLive Vvwxmg19VkftNoyikhbJA Total LaborLabor/2nd/4inFgmlolRxiWrniNrbaFIHSzkZ4L7DctwCslcFpbxcxuEzzwkeb Last Filed Vital Signs Vital SignReadingTime TakenCommentsBlood Vggqdwop328/9905/25/2025 1:16 PM ELECTRIC SIGN ASSEMBLER Vance924005/25/2025 1:16 PM HPUNlkesknnban39.9 ??C (98.5 ??F)05/25/2025 1:16 PM CSTRespiratory Xwpd731607/26/2024 1:16 PM CSTOxygen Tidifxebek70%05/25/2025 1:16 PM CSTInhaled Oxygen Concentration--Oiyhjb367.4 kg (325 lb)05/25/2025 1:16 PM ZEFFcsvvy742.7 cm (5' 8)05/25/2025 1:16 PM CSTBody Mass Index49.42107/26/2024 1:16 PM ELECTRIC SIGN ASSEMBLER Plan of Treatment DateTypeDepartmentCare Team (Latest Contact Info)Porwtooukdg06/25/2026 11:30 AM CDTOffice Visit [facility] [address] [place], [place] [address] Eboni Pederson PA [address] [place] [address] Health MaintenanceDue DateLast DoneCommentsHIV for age 15-Pap [...] existsTetanus /, 06/02/2012Hepatitis C screening for age 18-19Rhfnrumyv79/02/2019Zoster (shingles) series for age 50+Eecgvwtft12/12/2021, 05/09/2020Pneumococcal series for age 50+Ojonsgwny99/28/2024Influenza DxsxxwtCelobcimz81/24/2025, 03/28/2024, 03/02/2023, Additional history existsCOVID-19 vaccine mujeosBpfraswlo77/22/2025, 03/28/2024, 04/12/2023, Additional history existsHepatitis B series for 19+Aged OutNo longer eligible based on patient's age to complete this topic Procedures Procedure NamePriorityDate/TimeAssociated DiagnosisCommentsEXTRA TUBE LIGHT TQYSEDjhlp66/26/2025 1:49 PM CSTCBC W PLT NO OXXRQVLW31/26/2025 1:49 PM ELECTRIC SIGN ASSEMBLER SCAN-CARDIAC STRIP04/12/2025 8:05 AM CSTEKG 12 LEADEarly AM04/12/2025 6:51 AM ELECTRIC SIGN ASSEMBLER MAGNESIUMEarly AM04/12/2025 4:40 AM ELECTRIC SIGN ASSEMBLER POTASSIUMEarly AM04/12/2025 4:40 AM ELECTRIC SIGN ASSEMBLER SCAN-CARDIAC STRIP04/12/2025 3:00 AM CSTSCAN-CARDIAC STRIP04/11/2025 8:02 PM ELECTRIC SIGN ASSEMBLER SCAN-CARDIAC STRIP04/11/2025 2:32 PM CSTHCHG ACTIVATED CLOTTING TM CVTimed 04/11/2025 11:34 AM ELECTRIC SIGN ASSEMBLER HCHG ACTIVATED CLOTTING TM TICopon53/12/2025 10:38 AM ELECTRIC SIGN ASSEMBLER HCHG ACTIVATED CLOTTING TM MIZfxsw09/12/2025 10:18 AM ELECTRIC SIGN ASSEMBLER HCHG ACTIVATED CLOTTING TM DEEauok14/12/2025 9:56 AM ELECTRIC SIGN ASSEMBLER HCHG ACTIVATED CLOTTING TM JQQsfhu0904/11/2025 9:31 AM ELECTRIC SIGN ASSEMBLER HCHG ACTIVATED CLOTTING TM SCDayzk73/12/2025 9:15 AM ELECTRIC SIGN ASSEMBLER ENDOTRACHEAL QYFJYhccejx49/12/2025 9:01 AM ELECTRIC SIGN ASSEMBLER ENDOTRACHEAL SMXMUsrdcum77/12/2025 9:01 AM ELECTRIC SIGN ASSEMBLER ENDOTRACHEAL ABEPRszpupn15/12/2025 9:01 AM ELECTRIC SIGN ASSEMBLER ENDOTRACHEAL KPJMZnumrhb22/12/2025 9:01 AM ELECTRIC SIGN ASSEMBLER EP STUDY /PUQSFQPREhxpepa57/12/2025 8:43 AM ELECTRIC SIGN ASSEMBLER EXTRA TUBE GOLD/DOCBfphk79/12/2025 7:12 AM CSTCBC W PLT NO JIZVSbyow25/12/2025 7:12 AM ELECTRIC SIGN ASSEMBLER BASIC METABOLIC UIUGMCzkfj94/12/2025 7:12 AM ELECTRIC SIGN ASSEMBLER EKG 12 KJIKBanxd03/12/2025 7:03 AM ELECTRIC SIGN ASSEMBLER SCAN-CARDIAC STRIP04/11/2025 12:00 AM ELECTRIC SIGN ASSEMBLER SDNA-FIT EXTERNAL (COLOGUARD)Qcpksoz7208/14/2024 10:10 AM CDT Screening for colon cancer XR MAMMO ADRIANA BILAT GPDHWRLfngxme49/04/2025 10:58 AM ELECTRIC SIGN ASSEMBLER Visit for screening mammogram LIPID PANEL W REFLEX MEASURED OZABfheqbg56/28/2024 12:17 PM CDT Dyslipidemia ANTI NRXTzusedm60/02/2019 1:34 PM CDT Encounter for hepatitis C screening test for low risk patient ([place]) NITRATOR OPERATOR THIN PREP PAP TZXWLBTiwqswp22/23/2006 5:42 PM ELECTRIC SIGN ASSEMBLER Screening Malignant Neoplasms Cervix from Last 3 Months or Most Recently Relevant to Health Maintenance Results * EXTRA TUBE LIGHT GREEN (05/25/2025 1:49 PM ELECTRIC SIGN ASSEMBLER)Specimen (Source)Anatomical Location / LateralityCollection Method / VolumeCollection TimeReceived Time BloodBLOOD SPECIMEN / UnknownExtra Tube / Vjboegu5605/25/2025 1:49 PM ELECTRIC SIGN ASSEMBLER 05/25/2025 1:56 PM ELECTRIC SIGN ASSEMBLER Narrative Authorizing ProviderResult TypeResult StatusThomas Tomas Cosme MDLABORATORY Final ResultPerforming OrganizationAddressCity/State/ZIP CodePhone Number [facility] [id number] [place] [address] * (ABNORMAL) CBC W PLT NO DIFF (05/25/2025 1:49 PM ELECTRIC SIGN ASSEMBLER) Only the most recent of2 resultswithin the time period is included. ComponentValueRef RangeTest MethodAnalysis TimePerformed AtPathologist Signature WHITE BLOOD COUNT7.64.5 - 11.0 thou/cu mm05/25/2025 1:59 PM [facility]AL LABORATORYRED BLOOD COUNT4.684.00 - 5.20 mil/cu mm05/25/2025 1:59 PM [facility]STUM[facility]TRAL WBDSDQSBJVGBBKPOABTX05.612.0 - 16.0 g/dL05/25/2025 1:59 PM [facility] LABORATORYHEMATOCRIT 42.933.0 - 51.0 %05/25/2025 1:59 PM [facility] QYDDAVDHXEAMW2903 - 100 fL05/25/2025 1:59 PM [facility] JDIAFYQSNHSYU20.126.0 - 34.0 pg05/25/2025 1:59 PM [facility] MWDCAFUMNGYAPV33.7(L)32.0 - 36.0 g/dL05/25/2025 1:59 PM [facility] MVPAEQXZXCAQI13.011.5 - 15.5 %05/25/2025 1:59 PM [facility] LABORATORYPLATELET VDDQS832302 - 440 thou/cu mm 05/25/2025 1:59 PM [facility] RFEOYHQSSQUSU82.16.5 - 11.0 fL05/25/2025 1:59 PM [facility] LABORATORYNRBC0.0% 05/25/2025 1:59 PM [facility] LABORATORYABS NRBC0.0thou /cu mm05/25/2025 1:59 PM [facility] LABORATORYSpecimen (Source)Anatomical Location / LateralityCollection Method / VolumeCollection TimeReceived TimeBloodBLOOD SPECIMEN / UnknownNon-Lab Venipuncture / Unknown 05/25/2025 1:49 PM CST05/25/2025 1:55 PM ELECTRIC SIGN ASSEMBLER Narrative Authorizing ProviderResult TypeResult StatusThomas Tomas Cosme MDHEMATOLOGY Final ResultPerforming OrganizationAddressCity/State/ZIP CodePhone Number [facility] [address] [place] [address], * SCAN-CARDIAC STRIP (04/12/2025 8:05 AM ELECTRIC SIGN ASSEMBLER) Narrative Authorizing ProviderResult TypeResult StatusScannerOTHERFinal Result * EKG (04/12/2025 6:51 AM ELECTRIC SIGN ASSEMBLER) Only the most recent of2 resultswithin the time period is included. ComponentValueRef RangeTest MethodAnalysis TimePerformed AtPathologist Signature InterpretationNormal sinus rhythm Normal ECG When compared with ECG of 11-Apr-2025 07:03, Premature atrial complexes are no longer Present BEYOND NOWVentricular Kiah73QWRMHJCUG NOWAtrial Vnnx71KVZAIQVAO NOWP-R Interval 176msBEYOND NOWQRS Nwayogtn39aeQENNIL VALJP663icZFPNNW XWNXWm897amQIAEQQ NOWP Zbln56vwhtsenEFVUUU NOWR Zetz41tdhzmfeKJSKFC NOWT Igmb86sjbgpmqDBGBSE NOW Specimen (Source)Anatomical Location / LateralityCollection Method / Volume Collection TimeReceived Time04/12/2025 6:51 AM CST04/12/2025 8:38 PM ELECTRIC SIGN ASSEMBLER Narrative Authorizing ProviderResult TypeResult StatusJooriana Mata MDEKG ORDFinal ResultPerforming OrganizationAddressCity/State/ZIP CodePhone Number [facility] [place], [place] * POTASSIUM (04/12/2025 4:40 AM ELECTRIC SIGN ASSEMBLER)ComponentValueRef RangeTest MethodAnalysis TimePerformed AtPathologist SignaturePOTASSIUM4.73.5 - 5.1 mmol/L106/12/2024 6:01 AM CSTKPC [facility]ENTRAL LABORATORYSpecimen (Source) Anatomical Location / LateralityCollection Method / VolumeCollection Time Received TimeBloodBLOOD SPECIMEN / UnknownVenipuncture / Lyxrcfs6004/12/2025 4:40 AM CST04/12/2025 5:32 AM ELECTRIC SIGN ASSEMBLER Narrative Authorizing ProviderResult TypeResult StatusJooriana Mata MDCHEMISTRYFinal ResultPerforming OrganizationAddressty/State/ZIP CodePhone Number [facility] [address] [place] [address], * MAGNESIUM (04/12/2025 4:40 AM ELECTRIC SIGN ASSEMBLER)ComponentValueRef RangeTest MethodAnalysis TimePerformed AtPathologist SignatureMAGNESIUM2.11.6 - 2.4 mg/dL04/12/2025 6:01 AM [facility] LABORATORYSpecimen (Source) Anatomical Location / LateralityCollection Method / VolumeCollection Time Received TimeBloodBLOOD SPECIMEN / UnknownVenipuncture / Bbagpzo8104/12/2025 4:40 AM CST04/12/2025 5:32 AM ELECTRIC SIGN ASSEMBLER Narrative Authorizing ProviderResult TypeResult StatusScotty Mata [facility] – HOLLISHEMISTRYFinal ResultPerforming OrganizationAddressCity/State/ZIP CodePhone Number [facility] [address] [address], [place] * SCAN-CARDIAC STRIP (04/12/2025 3:00 AM ELECTRIC SIGN ASSEMBLER) Narrative Authorizing ProviderResult TypeResult StatusScannerOTHERFinal Result * SCAN-CARDIAC STRIP (04/11/2025 8:02 PM ELECTRIC SIGN ASSEMBLER) Narrative Authorizing ProviderResult TypeResult StatusScannerOTHERFinal Result * SCAN-CARDIAC STRIP (04/11/2025 2:32 PM ELECTRIC SIGN ASSEMBLER) Narrative Authorizing ProviderResult TypeResult StatusScannerOTHERFinal Result * (ABNORMAL) ACTIVATED CLOTTING TIME [id number] ACT (04/11/2025 11:34 AM ELECTRIC SIGN ASSEMBLER) Only the most recent of6 resultswithin the time period is included. ComponentValueRef RangeTest MethodAnalysis TimePerformed AtPathologist Signature ACTIVATED CLOTTING TIME, IVQC514(H)74 - 125 sec04/12/2025 3:07 PM [facility]STH[facility] LABORATORYSpecimen (Source)Anatomical Location / LateralityCollection Method / VolumeCollection TimeReceived TimeBloodBLOOD SPECIMEN / Ehwquxw4904/11/2025 11:34 AM CST04/12/2025 3:07 PM ELECTRIC SIGN ASSEMBLER Narrative Authorizing ProviderResult TypeResult StatusScotty Mata MDHEMATOLOGYFinal ResultPerforming OrganizationAddressCity/State/ZIP CodePhone Number [facility] [address] [address], [place] * HCHG TUBE PR1, HCHG INSTRUMENT DISP PR10, HCHG KIT CO2 DETECTOR PR5, HCHG STYLET PR1 (04/11/2025 9:01 AM ELECTRIC SIGN ASSEMBLER) Narrative Mirella Hancock CRNA - 04/11/2025 9:01 AM ELECTRIC SIGN ASSEMBLER Mirella Hancock CRNA 04/11/2025 9:01 AM Procedure: [...] * EP STUDY /ABLATION (04/11/2025 8:43 AM ELECTRIC SIGN ASSEMBLER)Anatomical RegionLateralityModality X-Ray Angiography, X-Ray AngiographySpecimen (Source)Anatomical Location / LateralityCollection Method / VolumeCollection TimeReceived Time04/11/2025 8:43 AM ELECTRIC SIGN ASSEMBLER Narrative Transcriptions Scotty Mata MD - 04/11/2025 3:01 PM CST [facility] Electrophysiology Procedure Report Name: SUSANA WILDER Event Date: 04/11/2025 [employer] ID #: [id number] Date: 1960 Gender: Female Age: 64 LINA #: [id number] Procedure Performed By: SCOTTY MATA [facility] Referring Physician: Summary / Conclusions Summary: Susana [...] ? Same as Pre-operative diagnosis Consent & [place] Protocol [place] protocol was followed. TIME OUT conducted just [...] left superior pulmonary vein) Catheters used: 1. [employer] Sphere 9 PFA catheter. 2. Intracardiac echocardiography [...] Intervals Study State Underlying Rhythm Cycle Length [place] PA AH HV QRS [place] QRSMorphology Baseline NSR 851 166 110 45 [...] Intracardiac Echo AcuNav Diagnostic Ultrasound Catheter, 90cm Moodlerooms RightFemoral Vein HRA 9 Fr. Standard Sidearm [...] See Anesthesia Note Total Flouro Time: 2.2 SEASONAL TAX PREPARER Total Flouro Dose: 10 mGy Transseptal Mean LA Pressure: 18 mmHg Staff Name Role Scotty Mata Auditor Supervisor Crystal Douglas RN Nurse Luz Borjas [employer] COUNSELOR Monitor Dino Rose EPT Scrub SolaresBilly chong CVT Scrub Medications Ordered and Administered Start Time Stop Time Medication Dose Units Route Ordered By Given By 08:47 0.25% Bupivicaine 20 mL Subcut MD Scotty Bustamante MD 08:47 1% Lidocaine Hydrochloride 20 mL Subcut MD Toro Bustamante MD 09:00 Heparin 45223 Units IV MD Crystal Bustamante RN 09:55 [...] with status of Final Scotty Mata MD Auditor Supervisor [facility] [address] [place] [address] (p) [phone](f) Authorizing ProviderResult TypeResult StatusJay Deep Rose MDCV IMAGINGEdited Result - Final * EXTRA TUBE GOLD/SST (04/11/2025 7:12 AM ELECTRIC SIGN ASSEMBLER)Specimen (Source)Anatomical Location / LateralityCollection Method / VolumeCollection TimeReceived Time BloodBLOOD SPECIMEN / UnknownExtra Tube / Xjbigyx4104/11/2025 7:12 AM ELECTRIC SIGN ASSEMBLER 04/11/2025 7:31 AM ELECTRIC SIGN ASSEMBLER Narrative Authorizing ProviderResult TypeResult StatusDoctor UnknownLABORATORYFinal Result Performing OrganizationAddressCity/State/ZIP CodePhone Number [facility] [address] [address], * (ABNORMAL) Basic Metabolic Panel (04/11/2025 7:12 AM ELECTRIC SIGN ASSEMBLER)ComponentValueRef RangeTest MethodAnalysis TimePerformed AtPathologist NtrilawclFLJIEX581783 - 145 mmol/L106/11/2024 7:59 AM [facility] POTASSIUM4.23.5 - 5.1 mmol/L106/11/2024 7:59 AM [facility] XKFKASFDMMZMAUTCEU76658 - 107 mmol/L106/11/2024 7:59 AM [facility]-CENTRAL LABORATORYCO2,TDXBN5959 - 29 mmol/L106/11/2024 7:59 AM [facility] LABORATORYANION TLS383 - 18106/11/2024 7:59 AM [facility] TQFAEIAVWZQZGLXEY490(H)70 - 99 mg/dL04/11/2025 7:59 AM [facility] LABORATORYCALCIUM 9.58.8 - 10.4 mg/dL04/11/2025 7:59 AM [facility] LABORATORYComment: Reference ranges for this test were updated on 04/04/2024 to reflect our healthy population more accurately. Reference range changes are not retroactively applied to results, but previous results using the same methodology can be interpreted in the context of the new reference range. DII420 - 23 mg/dL04/11/2025 7:59 AM [facility] LABORATORYCREATININE1.00(H)0.50 - 0.90 mg/dL04/11/2025 7:59 AM [facility] LABORATORYBUN/CREAT FDYCO0894 - 7:59 AM ELECTRIC SIGN ASSEMBLER [facility] JLYBYWWZPGuEWL62(L)>90 mL/min/1.10k56704/11/2025 7:59 AM [facility] LABORATORYComment:As of 08/12/2021, eGFR is calculated by the CKD-EPI creatinine equation without race adjustment. ??eGFR can be influenced by muscle mass, exercise, and diet. ??The reported eGFR is an estimation onlyand is only applicable if the renal function is stable. Specimen (Source)Anatomical Location / LateralityCollection Method / Volume Collection TimeReceived TimeBloodBLOOD SPECIMEN / UnknownVenipuncture / Unknown 04/11/2025 7:12 AM CST04/11/2025 7:29 AM ELECTRIC SIGN ASSEMBLER Narrative Authorizing ProviderResult TypeResult StatusJay Geovani Rose MDCHEMISTRYFinal ResultPerforming OrganizationAddressCity/State/ZIP CodePhone Number [facility] [address] * SCAN-CARDIAC STRIP (04/11/2025 12:00 AM ELECTRIC SIGN ASSEMBLER) Narrative 04/11/2025 12:00 AM ELECTRIC SIGN ASSEMBLER Ordered by an unspecified provider. Authorizing ProviderResult TypeResult StatusOther Clinical StaffOTHERFinal Result * SDNA-FIT EXTERNAL (COLOGUARD) (08/14/2024 10:10 AM CDT)ComponentValueRef Range Test MethodAnalysis TimePerformed AtPathologist SignatureNONINV COLON CA DNA+OCC BLD SCRN STL-GBCLgraypooWvjyjeij41/20/2025 12:38 PM CDTEXLysosomal Therapeutics LABORATORIES (CLIA #:[id number])Comment: NEGATIVE TEST RESULT. A negative Cologuard result [...] Saavedra et al, N Engl J Med 2014;370(14):1060-9343) The normal value (reference range) for this assay is negative. COLOGUARD RE-SCREENING RECOMMENDATION: Periodic colorectal cancer screening is an important part ofpreventive healthcare for asymptomatic individuals at average risk for colorectal cancer. ??Following a negative Cologuard result, the [place] Cancer Society and U.S. Multi-Society Task Force screening guidelines recommend a Cologuard re-screening interval of 3 years. References: [place] [employer] Guideline for Colorectal Cancer Screening: https://www.cancer.or g/cancer/idfdu-oxqhfj-bcinvw/uiawbscko-zcienenfb-ooncdzq/acs-recommendations.htm l.; Leonides PERRY, Ami ROA, Toya PandyaK, Colorectal Cancer Screening: Recommendations for Physicians and Patients from the U.S. Multi-Society Task Force on Colorectal Cancer Screening , Am J Gastroenterology 2017; 112:7871-6521. TEST DESCRIPTION: Composite algorithmic analysis of stool [...] (Elizabet Santana al, N Engl J Med 2014;370(14):6755-2706.) Cologuard may produce a false negative or false positive result (no colorectal cancer or precancerous polyp present at colonoscopy follow up). A negative Cologuard test result does not guarantee the absence of CRC or advanced adenoma (pre-cancer). The current Cologuard screening interval is every 3 years. ([place] [employer] and U.S. Multi-Society Task Force). Cologuard performance data in a 10,000 patient pivotal study using colonoscopy as the reference method can be accessed at the following location: www.[employer]/results. Additional description of the Cologuard test process, warnings and precautions can be found at www.[email or web address].com. Specimen (Source)Anatomical Location / LateralityCollection Method / Volume Collection TimeReceived TimeStool specimen (specimen) (Rectum)08/14/2024 10:10 AM CDT08/15/2024 7:19 AM CDT Narrative Authorizing ProviderResult TypeResult StatusSherri Zuleika Zamora DOURINEFinal ResultPerforming OrganizationAddressCity/State/ZIP CodePhone Number [employer] (CLIA #:[id number]) [address] [place] [address], * XR MAMMO ADRIANA BILAT SCREEN (08/01/2024 10:58 AM ELECTRIC SIGN ASSEMBLER)Anatomical Region LateralityModalityBREASTS, Breast Left, Breast RightBilateralMammography Specimen (Source)Anatomical Location / LateralityCollection Method / Volume Collection TimeReceived Time Impressions 08/01/2024 3:31 PM ELECTRIC SIGN ASSEMBLER There is no radiographic evidence for malignancy. Recommend annual mammograms. MAMMOGRAM ASSESSMENT: ??ACR 1 Negative PATIENTS: You will also receive a letter with your examination results in an easy to read format. ??If you have questions about your results, please contact your referring provider. Narrative 08/01/2024 3:31 PM ELECTRIC SIGN ASSEMBLER For Patients: As a result of the 21st Century Cures Act, medical imaging exams and procedure reports are released immediately into your electronic medical record. You may view this report before your referring provider. If you have questions, please contact your health care provider. XR MAMMO ADRIANA BILAT SCREEN [[id number]] CLINICAL HISTORY: ??This is an asymptomatic 64 [...] PM CDT)ComponentValueRef RangeTest MethodAnalysis TimePerformed AtPathologist Signature CHOLESTEROL,[id number] - 199 mg/dL01/26/2024 7:26 PM [facility] LABORATORY-CENTRAL LABORATORYComment: Cholesterol, Total Reference Ranges Desirable <200 mg/dL Borderline 200-239 mg/dL High >=240 mg/dL ZCYMYEBZQZDRV685<150 mg/dL01/26/2024 7:26 PM [facility] LABORATORY-CENTRAL LABORATORYHDL UKFXYWCDFZV80>40 mg/dL01/26/2024 7:26 PM [facility] LABOR[facility]ORY-CENTRAL LABORATORYNON-HDL QEUNCQJOFBY56<145 mg/dl01/26/2024 7:26 PM [facility] LAB[facility]ATORY-CENTRAL LABORATORYCHOL/HDL RATIO2.47<4.5008 7:26 PM [facility] LABORAT[facility]-CENTRAL LABORATORYLDL QQSJHMCLFBQ33<=130 mg/dL01/26/2024 7:26 PM [facility] LABORATORY-CENTRAL LABORATORYVLDL VNTYNDBWZKB78<=30 mg/dL01/26/2024 7:26 PM [facility] LABORATORY-CENTRAL LABORATORYPROVIDER ORDERED YETJZOLTYHLB11/28/2024 7:26 PM [facility] LABORATORY-CENTRAL LABORATORYSpecimen (Source)Anatomical Location / Laterality Collection Method / VolumeCollection TimeReceived TimeBloodBLOOD SPECIMEN / UnknownVenipuncture / Eupxacq1801/26/2024 12:17 PM CDT01/26/2024 12:18 PM CDT Narrative Authorizing ProviderResult TypeResult StatusKia Zamora DOCHEMISTRYFinal ResultPerforming OrganizationAddGuthrie Clinicty/State/ZIP CodePhone Number [facility]-CEN[facility]AL LABORATORY [address] [place] [address], * ANTI HCV (12/30/2018 1:34 PM CDT)ComponentValueRef RangeTest MethodAnalysis TimePerformed AtPathologist SignatureHEPATITIS C ANTIBODYNon-Reactive Non-Onzijquv97/02/2019 8:22 PM CDSC[facility] Comment:Antibodies to HCV not detected; does not exclude the possibility of exposure to HCV.Specimen (Source)Anatomical Location / LateralityCollection Method / VolumeCollection TimeReceived TimeBloodBLOOD SPECIMEN / Unknown Venipuncture / Xnepwic9412/30/2018 1:34 PM CDT12/30/2018 1:34 PM CDT Narrative Authorizing ProviderResult TypeResult StatusKia Zamora DOSEND OUTSFinal ResultPerforming OrganizationAddressty/[facility]/ZIP CodePhone Number [facility]-CENTRAL LABORATORY 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 [employer] ?? Status: Final Report ? [id number] ?? CLINICAL INFORMATION ?LMP ? : 07/01/05 ?Previous Pap Date ? : MANY YEARS ?Previous PAP Dx ? : None ?Previous Julian/bx date : None ?Previous Colposcopy/Bx: None ?Hormone Usage ? : None ?Menstrual Status ?: Irregular Periods ?Appearance of Cervix ??: NOT VISUALIZED,OBTAINED BLINDLY ?Julian/Bx done today ?: No ?HPV Request ? [...] 07/23/05 ?? ACCESSIONED: 07/23/05 ?? SIGNED: 07/31/05[facility] (Source)Anatomical Location / LateralityCollection Method / VolumeCollection TimeReceived TimeCervixSPECIMEN FROM UTERINE CERVIX / Estcxmc1207/23/2005 5:42 PM CST07/23/2005 5:39 PM ELECTRIC SIGN ASSEMBLER Narrative Authorizing ProviderResult TypeResult StatusHarold L Clark MDPATHOLOGY/CYTOLOGY Final ResultPerforming OrganizationAddressCity/State/ZIP CodePhone Number [facility] INTERNAL ZIP [phone] [address] from Last 3 Months or Most Recently Relevant to Health Maintenance Insurance Advance Directives TypeDate RecordedPatient RepresentativeExplanationHealthcare Directive01/05/2021 [facility] , 01/05/2021 * Full Code (Latest Code Status on File) Date ActivatedDate CfkepzlzfczHsucgkyl91/12/2025 10:58 AM04/12/2025 3:49 PM QuestionAnswerCommentsCode Status Discussion:* [...] Team MemberRelationshipSpecialtyStart [place] [address] [place] [address] PCP - GeneralFadely Practice02/15/25
--- OUTSIDE RECORDS SUMMARY | 2025-05-30 10:35 | XMS_ITS | Clinical Summary ---
Author Organization [place] Address [address] [place] [address]. 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 Role Phone [facility], [facility] Primary Care Provide r Allergies No [...] InformationValueDate RecordedSex Assigned at BirthNot on fileLegal CaxHeqeji44/04/2012 3:41 AM CSTGender IdentityNot on fileSexual OrientationNot on file Last Filed Vital Signs Vital SignReadingTime TakenCommentsBlood Oyhiddpc468/8408/26/2024 5:25 PM CDT Gkidc703508/26/2024 5:25 PM WUPQwxvuhstuvt56.8 ??C (98.2 ??F)08/26/2024 2:19 PM CDTRespiratory Fkjb760908/26/2024 5:25 PM CDTOxygen Stbqkwyitk06%08/26/2024 5:25 PM CDTInhaled Oxygen Concentration--Peoejq379.7 kg (275 lb)04/17/2012 1:49 PM JZIZemfnq913.3 cm (5' 9)04/17/2012 1:49 PM CSTBody Mass Index40.6104/17/2012 1:49 PM MEDICAL CLAIMS ANALYST Plan of Treatment Health MaintenanceDue DateLast DoneCommentsADVANCE CARE TAWNPYYE55/26/1961ANNUAL REVIEW OF HM ZRRFYQ86 1960T FZRVODGOKQYA29/26/1961IABETES SCREENING 1960FIT1960FLEX SIG1960YEARLY PREVENTIVE VISIT1963 FCSKOCKMKSZ26/26/1971HIV OCIFJUTIT91/26/7626LZSCR32/26/5084CCC1407/23/2008 07/23/2005PHQ-2 (once per calendar year)2024OVID-19 VACCINE ( season), 04/12/2023, 03/18/2022, Additional history exists INFLUENZA VACCINE (#1)/, 03/02/2023, 03/18/2022, Additional history existsMAMMO EPTHLBYDU46, 08/01/2024, 05/13/2023, Additional history existsCOLORECTAL CANCER IKASQLQYB19/17/2028sDNA (Cologuard) , 08/14/2024, 08/14/2024DTAP/TDAP/TD VACCINE (3 - Td or Tdap)/, 06/02/2012RSV VACCINE (1 - 1-dose 75+ series) 2035HEPATITIS C IJMDPMMNILjjgsbubh01/02/2019ZOSTER VACCINECompleted 07/12/2020, 05/09/2020PNEUMOCOCCAL VACCINE 50+ GKGYNGegpzsfey05/28/2024HPV VACCINE (No Doses Required)CompletedMENINGITIS VACCINEAged OutNo longer eligible based on patient's age to complete this topic Insurance Care Teams Team MemberRelationshipSpecialtyStart DateEnd [address] [phone] PCP - General08/26/24
[2025-05-30 10:48] VITALS: BP 131/81; PULSE 80; RESP 18; TEMP 36.3; O2SAT 94
--- NOTE | 2025-05-30 11:35 | ED.GENADULT ---
HPI - General Adult General Chief complaint: Ear/Nose/Throat Problem Stated complaint: nose balloon removal Time Seen by Provider: 05/30/25 11:28 History of Present Illness HPI narrative: Patient presents to the emergency department wanting the packing in her nose removed. Patient states she has been unable to get an appointment and would like it removed. 64-year-old woman presenting to the emergency department for removal of right nasal passage balloon packing. History of Eliquis which has been held over the last few days. This balloon was placed 5 days ago. She has been struggling with discomfort and nausea since. Seen here 2 days ago after some bleeding but did not require any intervention here in ER. Has been taking prophylactic antibiotic over this time as well. Related Data Home Medications ?Medication ?Instructions ?Recorded ?Confirmed apixaban 5 mg tablet (Eliquis) 5 mg PO BID 10/30/22 06/05/25 atorvastatin 20 mg tablet 20 mg PO DAILY 10/30/22 06/05/25 pantoprazole 40 mg tablet,delayed 40 mg PO DAILY 10/30/22 06/05/25 release sotalol 80 mg tablet 80 mg PO BID 10/30/22 06/05/25 spironolactone 25 mg tablet 12.5 mg PO DAILY 12/02/22 06/05/25 amiodarone 200 mg tablet 200 mg PO DAILY 05/28/25 06/05/25 metoprolol succinate 25 mg 12.5 mg PO DAILY 05/28/25 06/05/25 tablet,extended release 24 hr lisinopril 10 mg tablet 10 mg PO BID 06/05/25 06/05/25 metoprolol tartrate 50 mg tablet 50 mg PO BID 06/05/25 06/05/25 warfarin 5 mg tablet 5 mg PO DAILY 06/05/25 06/05/25 Previous Rx's ?Medication ?Instructions ?Recorded diltiazem HCl 120 mg capsule,24 120 mg PO DAILY #30 caps 02/14/25 hr,extended release furosemide 20 mg tablet 20 mg PO DAILY #3 tabs 02/14/25 Allergies Allergy/AdvReac Type Severity Reaction Status Date / Time Latex, Natural Rubber Allergy Unknown Verified 06/05/25 16:48 Review of Systems Status of ROS: Reports: 6 or more systems reviewed and unremarkable except as noted in History and below PFSH PFSH Social History Smoking Status: Never smoker Second hand tobacco smoke exposure: No How often do you have a drink containing alcohol: never How often do you have six or more drinks on one occasion: Never AUDIT-C Alcohol total score: 0 Non-prescribed substance use: denies use service: No Exam Narrative: Exam Narrative: No bleeding evident at this time. Does seem generally uncomfortable. Breathing easily. I did initially place normal saline drops to soften up the packing, to allow for decompression without stabilizing presume clot. I did return to decompress the balloon. Immediately began bleeding from the right nostril. Reinflated balloon with 4 mL of fluid that had been removed. Initially bleeding appears to be controlled again. Const: Vital Signs, click to edit/add: Vital Signs - 24 hr 05/30/25 10:48 Temperature 97.4 F L Pulse Rate [Right Pulse Oximeter] 80 Respiratory Rate 18 Blood Pressure [Ri ght Upper Arm] 131/81 Pulse Oximetry 94 Oxygen Delivery Me thod Room Air Documenting provider has reviewed patient's vital signs: yes Course Vital Signs Vital signs: Initial Vital Signs Temperature 97.4 F L 05/30/25 10:48 Temperature Source Temporal Artery Scan 05/30/25 10:48 Pulse Rate 80 05/30/25 10:48 Pulse Rhythm Regular 05/30/25 10:48 Pulse Strength 3+ Normal 05/30/25 10:48 Respiratory Rate 18 05/30/25 10:48 Blood Pressure 131/81 05/30/25 10:48 Blood Pressure Mean 97 05/30/25 10:48 Blood Pressure Position Sitting 05/30/25 10:48 Pulse Oximetry 94 05/30/25 10:48 Oxygen Delivery Method Room Air 05/30/25 10:48 Vital Signs Temperature 97.4 F L 05/30/25 10:48 Pulse Rate 80 05/30/25 10:48 Respiratory Rate 18 05/30/25 10:48 Blood Pressure 131/81 05/30/25 10:48 Pulse Oximetry 94 05/30/25 10:48 Oxygen Delivery Method Room Air 05/30/25 10:48 Temperature 97.4 F L 05/30/25 10:48 Pulse Rate 80 05/30/25 10:48 Respiratory Rate 18 05/30/25 10:48 Blood Pressure 131/81 05/30/25 10:48 Pulse Oximetry 94 05/30/25 10:48 Oxygen Delivery Method Room Air 05/30/25 10:48 Medical Decision Making MDM Narrative Medical decision making narrative: History of recurrent nose bleeds with anticoagulation. It sounds like history of cautery as well. Will consult with ENT for more urgent evaluation. Did discuss with ENT on-call. Recommendations are to maintain current packing now for at least another week. Will need to at some point discontinue Eliquis as well prior to removal of packing. On reassessment with minimal oozing. Oropharyngeal bleeding has stopped. See patient discharge plan for further discussion remember that your Eliquis should be held for a few days prior to pulling the packing. Will try to make a follow-up appointment with Dr. Regalado who is covering for ENT for next Wednesday or Wednesday depending on availability. It may also be Dr. Levin. Per my conversation with Dr. Mattson ENT, we need to leave the packing in yet another week at this point. Prescribing more amoxicillin. use your Zofran if needed. Focus on hydration. Best wishes on your competition should you choose to compete Medical Records Medical records reviewed: Yes I reviewed the patient's medical records Discharge Plan Discharge Clinical Impression: Epistaxis, Anticoagulated Patient Disposition: Home, Self-Care Condition: Improved Additional Instructions: remember that your Eliquis should be held for a few days prior to pulling the packing. Will try to make a follow-up appointment with Dr. Regalado who is covering for ENT for next Wednesday or Wednesday depending on availability. It may also be Dr. Levin. Per my conversation with Dr. Mattson ENT, we need to leave the packing in yet another week at this point. Prescribing more amoxicillin. use your Zofran if needed. Focus on hydration. Best wishes on your competition should you choose to compete Prescriptions: No Action lisinopril 10 mg tablet 10 mg PO BID warfarin 5 mg tablet 5 mg PO DAILY metoprolol tartrate 50 mg tablet 50 mg PO BID spironolactone 25 mg tablet 12.5 mg PO DAILY furosemide 20 mg tablet 20 mg PO DAILY Qty: 3 0RF diltiazem HCl 120 mg capsule,extended release 24hr 120 mg PO DAILY Qty: 30 0RF amiodarone 200 mg tablet 200 mg PO DAILY metoprolol succinate 25 mg tablet extended release 24 hr 12.5 mg PO DAILY atorvastatin 20 mg tablet 20 mg PO DAILY sotalol 80 mg tablet 80 mg PO BID pantoprazole 40 mg tablet,delayed release (DR/EC) 40 mg PO DAILY Eliquis 5 mg tablet 5 mg PO BID Patient Comments: hold for past 2 days due to nosebleed Follow Up/Referrals: Kia Zamora DO [Primary Care Provider, Family Practice] Stand Alone Forms: [facility] Info Instructions
== END 2025-05-30 13:48 | disposition home or self-care (01) ==
PROVIDERS: Emergency Provider Family Medicine; PCP Family Medicine
DX: R04.0 Epistaxis (principal); Z79.01 Long term (current) use of anticoagulants
CPT/HCPCS: 30901; 99282; 99284